=== PATIENT | female | born 1965 | race Caucasian/White ===

== ENCOUNTER → 2016-06-17 | Outpatient (CLI) | payer BC ==
[~2016-06-17] MED LIST: ALB0.5V INH; ALBU8.5H2 IH; ALPR.5T PO; BUDE6HFA IH; ESTR2TAB4 PO; FLUT9.9S NSEACH; HYDR-3812 PO; IRON150C3 PO; LVT.088T PO; MNTL10T PO; PANT20TA PO; PANT40TA3 PO
--- OUTSIDE RECORDS SUMMARY | 2016-06-17 06:50 | XMS REPORT | Continuity of Care Document ---
Author Author [facility] Organization [facility] Address Unknown Phone Unavailable Allergies Active Description Code Type Severity Reaction Onset Reported/Identified Relationship to Patient Clinical Status Yes amoxicillin [id number] Drug Allergy Unknown N/A 10/20/2013 Yes azithromycin [id number] Drug Allergy Unknown N/A 10/20/2013 Yes diphenhydramine [id number] Drug Allergy Unknown N/A 10/20/2013 Yes levofloxacin [id number] Drug Allergy Unknown N/A 10/20/2013 Yes Penicillins [id number] Drug Allergy Unknown N/A 10/20/2013 Yes Sulfa (Sulfonamide Antibiotics) [id number] Drug Allergy Unknown N/A 10/20/2013 Medications Problems Date Dx Coded Attending Type Code Diagnosis Diagnosed By 04/02/2014 JEREMY HERNANDEZ, WILLIAM Nieto Ot 530.10 04/02/2014 JEREMY HERNANDEZ, WILLIAM Nieto Ot 535.50 04/02/2014 JEREMY HERNANDEZ, WILLIAM Nieto Ot 553.3 04/02/2014 GLADYS DE ANDA DO Ot 786.09 04/02/2014 GLADYS DE ANDA DO Ot 793.11 04/16/2015 GLADYS DE ANDA DO Ot F41.9 04/16/2015 GLADYS DE ANDA DO Ot J40 04/16/2015 GLADYS DE ANDA DO Ot R05 04/16/2015 GLADYS DE ANDA DO Ot R06.00 08/06/2015 SATNAM HUNT APRN Ot J40 BRONCHITIS, NOT SPECIFIED ACUTE OR CH 08/06/2015 SATNAM HUNT DESULPHURING OPERATOR Ot R05 COUGH 08/06/2015 SATNAM HUNT APRN Ot R06.00 DYSPNEA, UNSPECIFIED 08/21/2015 SATNAM HUNT DESULPHURING OPERATOR Ot J40 BRONCHITIS, NOT SPECIFIED ACUTE OR CH 08/21/2015 SATNAM HUNT DESULPHURING OPERATOR Ot R05 COUGH 08/21/2015 MARILEE, SATNAM E DESULPHURING OPERATOR Ot R06.00 DYSPNEA, UNSPECIFIED 08/26/2015 MARILEE, SATNAM E DESULPHURING OPERATOR Ot J30.9 ALLERGIC RHINITIS, UNSPECIFIED 08/26/2015 MARILEE, SATNAM E DESULPHURING OPERATOR Ot 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, UNSPECIFIED 08/26/2015 MARILEE, SATNAM E DESULPHURING OPERATOR Ot R05 COUGH 08/26/2015 MARILEE, SATNAM E DESULPHURING OPERATOR Ot J30.9 ALLERGIC RHINITIS, UNSPECIFIED 08/26/2015 MARILEE, SATNAM E DESULPHURING OPERATOR Ot 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, UNSPECIFIED 08/26/2015 MARILEE, SATNAM E DESULPHURING OPERATOR Ot R05 COUGH 08/27/2015 MARILEE, SATNAM E DESULPHURING OPERATOR Ot J30.9 ALLERGIC RHINITIS, UNSPECIFIED 08/27/2015 MARILEE, SATNAM E DESULPHURING OPERATOR Ot 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, UNSPECIFIED 08/27/2015 MARILEE, SATNAM E DESULPHURING OPERATOR Ot R05 COUGH 08/27/2015 WILLI HUNTINE E DESULPHURING OPERATOR Ot J30.9 ALLERGIC RHINITIS, UNSPECIFIED 08/27/2015 MARILEEWILLI VÁZQUEZINE E DESULPHURING OPERATOR Ot 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, UNSPECIFIED 08/27/2015 MARILEE, SATNAM E DESULPHURING OPERATOR Ot R05 COUGH 08/28/2015 MARILEE, SATNAM E DESULPHURING OPERATOR Ot J30.9 ALLERGIC RHINITIS, UNSPECIFIED 08/28/2015 MARILEE, SATNAM E DESULPHURING OPERATOR Ot 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, UNSPECIFIED 08/28/2015 MARILEE, SATNAM E DESULPHURING OPERATOR Ot R05 COUGH 08/29/2015 WILLI HUNTINE E DESULPHURING OPERATOR Ot J30.9 ALLERGIC RHINITIS, UNSPECIFIED 08/29/2015 WILLI HUNTINE E DESULPHURING OPERATOR Ot 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, UNSPECIFIED 08/29/2015 MARILEE, SATNAM E DESULPHURING OPERATOR Ot R05 COUGH 09/06/2015 MARILEE, ASTNAM E DESULPHURING OPERATOR Ot J30.9 ALLERGIC RHINITIS, UNSPECIFIED 09/06/2015 MARILEE, SATNAM E DESULPHURING OPERATOR Ot 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, UNSPECIFIED 09/06/2015 MARILEE, SATNAM E DESULPHURING OPERATOR Ot R05 COUGH 09/11/2015 MARILEE SATNAM E DESULPHURING OPERATOR Ot J30.9 ALLERGIC RHINITIS, UNSPECIFIED 09/11/2015 MARILEE, SATNAM E DESULPHURING OPERATOR Ot 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, UNSPECIFIED 09/11/2015 SATNAM HUNT DESULPHURING OPERATOR Ot R05 COUGH 09/20/2015 SATNAM HUNT DESULPHURING OPERATOR Ot J30.9 ALLERGIC RHINITIS, UNSPECIFIED 09/20/2015 SATNAM HUNT DESULPHURING OPERATOR Ot 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, UNSPECIFIED 09/20/2015 SATNAM HUNT DESULPHURING OPERATOR Ot R05 COUGH 12/11/2015 MILLER DO, SATHYA Ot M25.471 EFFUSION, RIGHT ANKLE 12/11/2015 MILLER DO, SATHYA Ot M25.571 PAIN IN RIGHT ANKLE AND JOINTS OF RIGHT 12/31/2015 MILLER DO, SATHYA Ot M25.471 EFFUSION, RIGHT ANKLE 12/31/2015 MILLER DO, SATHYA Ot M25.571 PAIN IN RIGHT ANKLE AND JOINTS OF RIGHT 06/17/2016 SATNAM HUNT DESULPHURING OPERATOR Ot J40 BRONCHITIS, NOT SPECIFIED ACUTE OR CH 06/17/2016 SATNAM HUNT DESULPHURING OPERATOR Ot R05 COUGH 06/17/2016 SATNAM HUNT DESULPHURING OPERATOR Ot R06.00 DYSPNEA, UNSPECIFIED 06/17/2016 SATNMA HUNT DESULPHURING OPERATOR Ot J30.9 ALLERGIC RHINITIS, UNSPECIFIED 06/17/2016 SATNAM HUNT DESULPHURING OPERATOR Ot 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, UNSPECIFIED 06/17/2016 SATNAM HUNT DESULPHURING OPERATOR Ot R05 COUGH 06/17/2016 SATNAM HUNT DESULPHURING OPERATOR Ot J30.9 ALLERGIC RHINITIS, UNSPECIFIED 06/17/2016 SATNAM HUNT DESULPHURING OPERATOR Ot 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, UNSPECIFIED 06/17/2016 SATNAM HUNT DESULPHURING OPERATOR Ot R05 COUGH 06/17/2016 MILLER DO, SATHYA Ot M25.471 EFFUSION, RIGHT ANKLE 06/17/2016 MILLER DO, SATHYA Ot M25.571 PAIN IN RIGHT ANKLE AND JOINTS OF RIGHT Procedures Results Test Result Range Complete blood count (CBC) with automated white blood cell (WBC) differential - 12/09/15 16:55 Blood leukocytes automated count (number/volume) 8.9 10*3/ uL 4.3-11.0 Blood erythrocytes automated count (number/volume) 4.29 10*6 /uL 4.35-5.85 Venous blood hemoglobin measurement (mass/volume) 13.4 g/dL 11.5-16.0 Blood hematocrit (volume fraction) 39 % 35-52 Automated erythrocyte mean corpuscular volume 92 [foz_us] 80-99 Automated erythrocyte mean corpuscular hemoglobin (mass per erythrocyte) 31 pg 25-34 Automated erythrocyte mean corpuscular hemoglobin concentration measurement ( mass/volume) 34 g/dL 32-36 Automated erythrocyte distribution width ratio 12.3 % 10.0-14.5 Automated blood platelet count (count/volume) 263 10*3/uL 130-400 Automated blood platelet mean volume measurement 10.4 [foz_ us] 7.4-10.4 Automated blood neutrophils/100 leukocytes 56 % 42-75 Automated blood lymphocytes/100 leukocytes 35 % 12-44 Blood monocytes/100 leukocytes 7 % 0-12 Automated blood eosinophils/100 leukocytes 2 % 0-10 Automated blood basophils/100 leukocytes 0 % 0-10 Blood neutrophils automated count (number/volume) 5.0 10*3 1.8-7.8 Blood lymphocytes automated count (number/volume) 3.1 10*3 1.0-4.0 Blood monocytes automated count (number/volume) 0.6 10*3 0.0-1.0 Automated eosinophil count 0.2 10*3/uL 0.0-0.3 Automated blood basophil count (count/volume) 0.0 10*3/uL 0.0-0.1 Comprehensive metabolic panel - 12/09/15 16:55 Serum or plasma sodium measurement (moles/volume) 137 mmol/ L 135-145 Serum or plasma potassium measurement (moles/volume) 4.0 mmol/L 3.6-5.0 Serum or plasma chloride measurement (moles/volume) 103 mmol /L 98-107 Carbon dioxide 23 mmol/L 21-32 Serum or plasma anion gap determination (moles/volume) 11 mmol/L 5-14 Serum or plasma urea nitrogen measurement (mass/volume) 10 mg/dL 7-18 Serum or plasma creatinine measurement (mass/volume) 0.75 mg /dL 0.60-1.30 Serum or plasma urea nitrogen/creatinine mass ratio 13 NRG Serum or plasma creatinine measurement with calculation of estimated glomerular filtration rate > NRG Serum or plasma glucose measurement (mass/volume) 85 mg/dL 70-105 Serum or plasma calcium measurement (mass/volume) 9.4 mg/dL 8.5-10.1 Serum or plasma total bilirubin measurement (mass/volume) 0.6 mg/dL 0.1-1.0 Serum or plasma alkaline phosphatase measurement (enzymatic activity/volume) 68 U/L 40-136 Serum or plasma aspartate aminotransferase measurement (enzymatic activity/ volume) 20 U/L 5-34 Serum or plasma alanine aminotransferase measurement (enzymatic activity/volume ) 19 U/L 0-55 Serum or plasma protein measurement (mass/volume) 7.0 g/dL 6.4-8.2 Serum or plasma albumin measurement (mass/volume) 4.2 g/dL 3.2-4.5 Serum or plasma uric acid measurement (mass/volume) - 12/09/15 16:55 Serum or plasma uric acid measurement (mass/volume) 5.9 mg/ dL 2.6-7.2 Serum or plasma C reactive protein measurement (mass/volume) - 12/09/15 16:55 Serum or plasma C reactive protein measurement (mass/volume) 2.15 mg/dL 0.00-0.50 Erythrocyte sedimentation rate by westergren method - 12/09/15 16:55 Erythrocyte sedimentation rate by westergren method 20 mm 0-30 Encounters ACCT No. Visit Date/Time Discharge Status Pt. Type Provider Facility Loc./Unit Complaint [id number] 04/02/2014 10:09:00 2013 13:15:00 DIS Outpatient WILLIAM LUNA MD [facility] [id number] 03/30/2014 05:51:00 2013 23:59:59 CLS Outpatient WILLIAM LUNA MD [facility] PREOP [id number] 03/12/2014 14:05:00 2013 23:59:59 CLS Outpatient GLADYS DE ANDA DO [facility] RAD [id number] 01/24/2014 20:23:00 2013 05:55:00 DIS Outpatient [id number] 12/15/2013 13:16:00 2013 00:01:00 DIS Outpatient [id number] 09/13/2013 15:23:00 2013 23:59:59 CLS Outpatient [id number] 07/14/2013 16:58:00 2013 23:59:59 CLS Outpatient [id number] 06/17/2016 06:47:00 ACT Outpatient SATHYA MILLER DO [facility] RAD GENERALIZED ABD PAIN [id number] 12/09/2015 16:46:00 ACT Outpatient SATHYA MILLER DO [facility] LAB PAIN IN R ANKLE AND JOINTS OF R FOOT,EFFUSION [id number] 09/05/2015 11:26:00 ACT Outpatient SATNAM HUNT APRN [facility] LAB ALLERGIC RHINITIS,COUGH,HIVES OF UNKNOWN ORIGIN [id number] 08/23/2015 10:35:00 ACT Outpatient SATNAM HUNT APRN [facility] LAB ALLERGIC RHINITIS, COUGH, URTICARIA [id number] 08/05/2015 11:29:00 ACT Outpatient SATNAM HUNT APRN [facility] RAD COUGH,BRONCHITIS [id number] 04/24/2015 09:51:00 ACT Outpatient GLADYS DE ANDA DO [facility] RT [id number] 03/25/2015 11:40:00 ACT Outpatient GLADYS DE ANDA DO [facility] RAD
--- NOTE | 2016-06-17 14:55 | Diagnostic Imaging Report ---
PROCEDURE: US abdomen complete. TECHNIQUE: Multiple real-time grayscale images were obtained over the abdomen in various projections. INDICATION: Abdominal pain. FINDINGS: There are no previous abdominal ultrasound examinations available for comparison. The CTA chest exam performed on 03/25/2015 revealed fatty infiltration of the liver as well as multiple gallstones. On this exam, both of those findings are again evident. There are multiple gallstones within the gallbladder. The gallbladder wall is not thickened, however, and there is no pericholecystic fluid to suggest acute cholecystitis. The common bile duct is not dilated either measuring 5.2 mm. The liver measures 17 cm in length and the liver does seem more echogenic than usual. 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 There is no focal mass involving the liver and the biliary tree is not abnormally dilated. The spleen does not appear to be enlarged. The spleen measures 12 x 4.4 x 3.6 cm. The spleen is homogeneous. The kidneys are normal in size and there is no evidence for a solid renal mass or for hydronephrosis of either kidney. The visualized proximal aorta and inferior vena cava are within normal limits. The pancreas is obscured by bowel gas. There is no mass or free fluid collection noted. IMPRESSION: 1. There is no acute abnormality of the abdomen. 2. There is cholelithiasis but there is no sign of acute cholecystitis. If clinical concern regarding acute cholecystitis persists and further imaging is desired, then a nuclear medicine hepatobiliary scan will be recommended. 3. The pancreas is obscured by bowel gas. Dictated by: Dictated on workstation # [id number]
== END ==
LOC: RAD 06:47
PROVIDERS: ATTEND Internal Medicine
DX: R10.84 Generalized abdominal pain (principal)
CPT/HCPCS: 76700

== ENCOUNTER → 2016-06-18 | Outpatient (CLI) | payer BC ==
--- OUTSIDE RECORDS SUMMARY | 2016-06-18 15:48 | XMS REPORT | Continuity of Care Document ---
Author Author [facility] Organization [facility] Address Unknown Phone Unavailable Allergies Active Description Code Type Severity Reaction Onset Reported/Identified Relationship to Patient Clinical Status Yes amoxicillin [id number] Drug Allergy Unknown N/A 10/20/2013 Yes azithromycin [id number] Drug Allergy Unknown N/A 10/20/2013 Yes diphenhydramine [id number] Drug Allergy Unknown N/A 10/20/2013 Yes levofloxacin [id number] Drug Allergy Unknown N/A 10/20/2013 Yes Penicillins [id number] Drug Allergy Unknown N/A 10/20/2013 Yes Sulfa (Sulfonamide Antibiotics) [id number] Drug Allergy Unknown N/A 10/20/2013 Medications Problems [...] SPECIFIED ACUTE OR CH 08/06/2015 SATNAM HUNT PROFESSOR OF SOCIAL WORK Ot R05 COUGH 08/06/2015 SATNAM HUNT APRN Ot R06.00 DYSPNEA, UNSPECIFIED 08/21/2015 SATNAM HUNT PROFESSOR OF SOCIAL WORK Ot J40 BRONCHITIS, NOT SPECIFIED ACUTE OR CH 08/21/2015 SATNAM HUNT PROFESSOR OF SOCIAL WORK Ot R05 COUGH 08/21/2015 MARILEE, SATNAM E PROFESSOR OF SOCIAL WORK Ot R06.00 DYSPNEA, UNSPECIFIED 08/26/2015 MARILEE, SATNAM E PROFESSOR OF SOCIAL WORK Ot J30.9 ALLERGIC RHINITIS, UNSPECIFIED 08/26/2015 MARILEE, SATNAM E PROFESSOR OF SOCIAL WORK Ot 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, UNSPECIFIED 08/26/2015 MARILEE, SATNAM E PROFESSOR OF SOCIAL WORK Ot R05 COUGH 08/26/2015 MARILEE, SATNAM E PROFESSOR OF SOCIAL WORK Ot J30.9 ALLERGIC RHINITIS, UNSPECIFIED 08/26/2015 MARILEE, SATNAM E PROFESSOR OF SOCIAL WORK Ot 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, UNSPECIFIED 08/26/2015 MARILEE, SATNAM E PROFESSOR OF SOCIAL WORK Ot R05 COUGH 08/27/2015 MARILEE, SATNAM E PROFESSOR OF SOCIAL WORK Ot J30.9 ALLERGIC RHINITIS, UNSPECIFIED 08/27/2015 MARILEE, SATNAM E PROFESSOR OF SOCIAL WORK Ot 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, UNSPECIFIED 08/27/2015 MARILEE, SATNAM E PROFESSOR OF SOCIAL WORK Ot R05 COUGH 08/27/2015 WILLI HUNTINE E PROFESSOR OF SOCIAL WORK Ot J30.9 ALLERGIC RHINITIS, UNSPECIFIED 08/27/2015 MARILEEWILLI VÁZQUEZINE E PROFESSOR OF SOCIAL WORK Ot 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, UNSPECIFIED 08/27/2015 MARILEE, SATNAM E PROFESSOR OF SOCIAL WORK Ot R05 COUGH 08/28/2015 MARILEE, SATNAM E PROFESSOR OF SOCIAL WORK Ot J30.9 ALLERGIC RHINITIS, UNSPECIFIED 08/28/2015 MARILEE, SATNAM E PROFESSOR OF SOCIAL WORK Ot 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, UNSPECIFIED 08/28/2015 MARILEE, SATNAM E PROFESSOR OF SOCIAL WORK Ot R05 COUGH 08/29/2015 WILLI HUNTINE E PROFESSOR OF SOCIAL WORK Ot J30.9 ALLERGIC RHINITIS, UNSPECIFIED 08/29/2015 WILLI HUNTINE E PROFESSOR OF SOCIAL WORK Ot 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, UNSPECIFIED 08/29/2015 MARILEE, SATNAM E PROFESSOR OF SOCIAL WORK Ot R05 COUGH 09/06/2015 MARILEE, SATNAM E PROFESSOR OF SOCIAL WORK Ot J30.9 ALLERGIC RHINITIS, UNSPECIFIED 09/06/2015 MARILEE, SATNAM E PROFESSOR OF SOCIAL WORK Ot 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, UNSPECIFIED 09/06/2015 MARILEE, SATNAM E PROFESSOR OF SOCIAL WORK Ot R05 COUGH 09/11/2015 MARILEE SATNAM E PROFESSOR OF SOCIAL WORK Ot J30.9 ALLERGIC RHINITIS, UNSPECIFIED 09/11/2015 MARILEE, SATNAM E PROFESSOR OF SOCIAL WORK Ot 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, UNSPECIFIED 09/11/2015 SATNAM HUNT PROFESSOR OF SOCIAL WORK Ot R05 COUGH 09/20/2015 SATNAM HUNT PROFESSOR OF SOCIAL WORK Ot J30.9 ALLERGIC RHINITIS, UNSPECIFIED 09/20/2015 SATNAM HUNT PROFESSOR OF SOCIAL WORK Ot 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, UNSPECIFIED 09/20/2015 SATNAM HUNT PROFESSOR OF SOCIAL WORK Ot R05 COUGH 12/11/2015 MILLER DO, SATHYA Ot M25.471 EFFUSION, RIGHT ANKLE 12/11/2015 MILLER DO, SATHYA Ot M25.571 PAIN IN RIGHT ANKLE AND JOINTS OF RIGHT 12/31/2015 MILLER DO, SATHYA Ot M25.471 EFFUSION, RIGHT ANKLE 12/31/2015 MILLER DO, SATHYA Ot M25.571 PAIN IN RIGHT ANKLE AND JOINTS OF RIGHT 06/17/2016 SATNAM HUNT PROFESSOR OF SOCIAL WORK Ot J40 BRONCHITIS, NOT SPECIFIED ACUTE OR CH 06/17/2016 SATNAM HUNT PROFESSOR OF SOCIAL WORK Ot R05 COUGH 06/17/2016 SATNAM HUNT PROFESSOR OF SOCIAL WORK Ot R06.00 DYSPNEA, UNSPECIFIED 06/17/2016 SATNAM HUNT PROFESSOR OF SOCIAL WORK Ot J30.9 ALLERGIC RHINITIS, UNSPECIFIED 06/17/2016 SATNAM HUNT PROFESSOR OF SOCIAL WORK Ot 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, UNSPECIFIED 06/17/2016 SATNAM HUNT PROFESSOR OF SOCIAL WORK Ot R05 COUGH 06/17/2016 SATNAM HUNT PROFESSOR OF SOCIAL WORK Ot J30.9 ALLERGIC RHINITIS, UNSPECIFIED 06/17/2016 SATNAM HUNT PROFESSOR OF SOCIAL WORK Ot 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, UNSPECIFIED 06/17/2016 SATNAM HUNT PROFESSOR OF SOCIAL WORK Ot R05 COUGH 06/17/2016 MILLER DO, SATHYA [...] Status Pt. Type Provider Facility Loc./Unit Complaint [id number] 04/02/2014 10:09:00 2013 13:15:00 DIS Outpatient WILLIAM LUNA MD [facility] [id number] 03/30/2014 05:51:00 2013 23:59:59 CLS Outpatient WILLIAM LUNA MD [facility] PREOP [id number] 03/12/2014 14:05:00 2013 23:59:59 CLS Outpatient GLADYS DE ANDA DO [facility] RAD [id number] 01/24/2014 20:23:00 2013 05:55:00 DIS Outpatient [id number] 12/15/2013 13:16:00 2013 00:01:00 DIS Outpatient [id number] 09/13/2013 15:23:00 2013 23:59:59 CLS Outpatient [id number] 07/14/2013 16:58:00 2013 23:59:59 CLS Outpatient [id number] 06/17/2016 06:47:00 ACT Outpatient SATHYA MILLER DO [facility] RAD GENERALIZED ABD PAIN [id number] 12/09/2015 16:46:00 ACT Outpatient SATHYA MILLER DO [facility] LAB PAIN IN R ANKLE AND JOINTS OF R FOOT,EFFUSION [id number] 09/05/2015 11:26:00 ACT Outpatient SATNAM HUNT APRN [facility] LAB ALLERGIC RHINITIS,COUGH,HIVES OF UNKNOWN ORIGIN [id number] 08/23/2015 10:35:00 ACT Outpatient SATNAM HUNT APRN [facility] LAB ALLERGIC RHINITIS, COUGH, URTICARIA [id number] 08/05/2015 11:29:00 ACT Outpatient SATNAM HUNT APRN [facility] RAD COUGH,BRONCHITIS [id number] 04/24/2015 09:51:00 ACT Outpatient GLADYS DE ANDA DO [facility] RT [id number] 03/25/2015 11:40:00 ACT Outpatient GLADYS DE ANDA DO [facility] RAD
[2016-06-18 15:57] LABS: MEAN PLATELET VOLUME 9.9 FL (7.4-10.4); RED BLOOD COUNT 4.27 10^6/uL (4.35-5.85); RED CELL DISTRIBUTION WIDTH 12.2 % (10.0-14.5); WHITE BLOOD COUNT 9.1 10^3/uL (4.3-11.0)
[2016-06-18 16:17] LABS: ALANINE AMINOTRANSFERASE 15 U/L (0-55); ALBUMIN 4.1 G/DL (3.2-4.5); AMYLASE 35 U/L (25-125); ANION GAP 10 MMOL/L (5-14); ASPARTATE AMINO TRANSFERASE 15 U/L (5-34); BILIRUBIN,TOTAL 0.5 MG/DL (0.1-1.0); BLOOD UREA NITROGEN 9 MG/DL (7-18); BUN/CREATININE RATIO 12; CALCIUM 9.2 MG/DL (8.5-10.1); CARBON DIOXIDE 24 MMOL/L (21-32); CHLORIDE 104 MMOL/L (98-107); CREATININE SERUM 0.74 MG/DL (0.60-1.30); GFR ESTIMATED > 60; GLUCOSE 86 MG/DL (70-105); LIPASE 12 U/L (8-78); POTASSIUM 3.8 MMOL/L (3.6-5.0); SODIUM 138 MMOL/L (135-145); TOTAL PROTEIN 7.2 G/DL (6.4-8.2)
== END ==
LOC: LAB 15:42
PROVIDERS: ATTEND Surgery
DX: R10.11 Right upper quadrant pain (principal)
CPT/HCPCS: 36415; 80053; 82150; 83690; 85027

== ENCOUNTER 2016-06-19 06:25 | Outpatient (CLI) | payer BC ==
[~2016-06-19] VITALS: Ht 157.5 cm; Wt 88.5 kg
[~2016-06-19 06:25] MED LIST changes: -ESTR2TAB4 PO; -FLUT9.9S NSEACH; -HYDR-3812 PO; -IRON150C3 PO; -PANT40TA3 PO
--- OUTSIDE RECORDS SUMMARY | 2016-06-19 06:28 | XMS REPORT | Continuity of Care Document ---
Author Author [facility] Organization [facility] Address Unknown Phone Unavailable Allergies Active Description Code Type Severity Reaction Onset Reported/Identified Relationship to Patient Clinical Status Yes amoxicillin [id number] Drug Allergy Unknown N/A 10/20/2013 Yes azithromycin [id number] Drug Allergy Unknown N/A 10/20/2013 Yes diphenhydramine [id number] Drug Allergy Unknown N/A 10/20/2013 Yes levofloxacin [id number] Drug Allergy Unknown N/A 10/20/2013 Yes Penicillins [id number] Drug Allergy Unknown N/A 10/20/2013 Yes Sulfa (Sulfonamide Antibiotics) [id number] Drug Allergy Unknown N/A 10/20/2013 Medications Problems [...] SPECIFIED ACUTE OR CH 08/06/2015 SATNAM HUNT ORAL SURGERY TECHNICIAN Ot R05 COUGH 08/06/2015 SATNAM HUNT APRN Ot R06.00 DYSPNEA, UNSPECIFIED 08/21/2015 SATNAM HUNT ORAL SURGERY TECHNICIAN Ot J40 BRONCHITIS, NOT SPECIFIED ACUTE OR CH 08/21/2015 SATANM HUNT ORAL SURGERY TECHNICIAN Ot R05 COUGH 08/21/2015 MARILEE, SATANM E ORAL SURGERY TECHNICIAN Ot R06.00 DYSPNEA, UNSPECIFIED 08/26/2015 MARILEE, SATNAM E ORAL SURGERY TECHNICIAN Ot J30.9 ALLERGIC RHINITIS, UNSPECIFIED 08/26/2015 MARILEE, ASTNAM E ORAL SURGERY TECHNICIAN Ot 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, UNSPECIFIED 08/26/2015 MARILEE, SATNAM E ORAL SURGERY TECHNICIAN Ot R05 COUGH 08/26/2015 MARILEE, SATNAM E ORAL SURGERY TECHNICIAN Ot J30.9 ALLERGIC RHINITIS, UNSPECIFIED 08/26/2015 MARILEE, SATNAM E ORAL SURGERY TECHNICIAN Ot 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, UNSPECIFIED 08/26/2015 MARILEE, SATNAM E ORAL SURGERY TECHNICIAN Ot R05 COUGH 08/27/2015 MARILEE, SATNAM E ORAL SURGERY TECHNICIAN Ot J30.9 ALLERGIC RHINITIS, UNSPECIFIED 08/27/2015 MARILEE, SATNAM E ORAL SURGERY TECHNICIAN Ot 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, UNSPECIFIED 08/27/2015 MARILEE, SATNAM E ORAL SURGERY TECHNICIAN Ot R05 COUGH 08/27/2015 WILLI HUNTINE E ORAL SURGERY TECHNICIAN Ot J30.9 ALLERGIC RHINITIS, UNSPECIFIED 08/27/2015 MARILEEWILLI VÁZQUEZINE E ORAL SURGERY TECHNICIAN Ot 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, UNSPECIFIED 08/27/2015 MARILEE, SATNAM E ORAL SURGERY TECHNICIAN Ot R05 COUGH 08/28/2015 MARILEE, SATNAM E ORAL SURGERY TECHNICIAN Ot J30.9 ALLERGIC RHINITIS, UNSPECIFIED 08/28/2015 MARILEE, SATNAM E ORAL SURGERY TECHNICIAN Ot 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, UNSPECIFIED 08/28/2015 MARILEE, SATNAM E ORAL SURGERY TECHNICIAN Ot R05 COUGH 08/29/2015 WILLI HUNTINE E ORAL SURGERY TECHNICIAN Ot J30.9 ALLERGIC RHINITIS, UNSPECIFIED 08/29/2015 WILLI HUNTINE E ORAL SURGERY TECHNICIAN Ot 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, UNSPECIFIED 08/29/2015 MARILEE, SATNAM E ORAL SURGERY TECHNICIAN Ot R05 COUGH 09/06/2015 MARILEE, SATNAM E ORAL SURGERY TECHNICIAN Ot J30.9 ALLERGIC RHINITIS, UNSPECIFIED 09/06/2015 MARILEE, SATNAM E ORAL SURGERY TECHNICIAN Ot 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, UNSPECIFIED 09/06/2015 MARILEE, SATNAM E ORAL SURGERY TECHNICIAN Ot R05 COUGH 09/11/2015 MARILEE SATNAM E ORAL SURGERY TECHNICIAN Ot J30.9 ALLERGIC RHINITIS, UNSPECIFIED 09/11/2015 MARILEE, SATNAM E ORAL SURGERY TECHNICIAN Ot 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, UNSPECIFIED 09/11/2015 SATNAM HUNT ORAL SURGERY TECHNICIAN Ot R05 COUGH 09/20/2015 SATNAM HUNT ORAL SURGERY TECHNICIAN Ot J30.9 ALLERGIC RHINITIS, UNSPECIFIED 09/20/2015 SATNAM HUNT ORAL SURGERY TECHNICIAN Ot 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, UNSPECIFIED 09/20/2015 SATNAM HUNT ORAL SURGERY TECHNICIAN Ot R05 COUGH 12/11/2015 MILLER DO, SATHYA Ot M25.471 EFFUSION, RIGHT ANKLE 12/11/2015 MILLER DO, SATHYA Ot M25.571 PAIN IN RIGHT ANKLE AND JOINTS OF RIGHT 12/31/2015 MILLER DO, SATHYA Ot M25.471 EFFUSION, RIGHT ANKLE 12/31/2015 MILLER DO, SATHYA Ot M25.571 PAIN IN RIGHT ANKLE AND JOINTS OF RIGHT 06/17/2016 SATNAM HUNT ORAL SURGERY TECHNICIAN Ot J40 BRONCHITIS, NOT SPECIFIED ACUTE OR CH 06/17/2016 SATNAM HUNT ORAL SURGERY TECHNICIAN Ot R05 COUGH 06/17/2016 SATNAM HUNT ORAL SURGERY TECHNICIAN Ot R06.00 DYSPNEA, UNSPECIFIED 06/17/2016 SATNAM HUNT ORAL SURGERY TECHNICIAN Ot J30.9 ALLERGIC RHINITIS, UNSPECIFIED 06/17/2016 SATNAM HUNT ORAL SURGERY TECHNICIAN Ot 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, UNSPECIFIED 06/17/2016 SATNAM HUNT ORAL SURGERY TECHNICIAN Ot R05 COUGH 06/17/2016 SATNAM HUNT ORAL SURGERY TECHNICIAN Ot J30.9 ALLERGIC RHINITIS, UNSPECIFIED 06/17/2016 SATNAM HUNT ORAL SURGERY TECHNICIAN Ot 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, UNSPECIFIED 06/17/2016 SATNAM HUNT ORAL SURGERY TECHNICIAN Ot R05 COUGH 06/17/2016 MILLER DO, SATHYA [...] rate by westergren method 20 mm 0-30 Automated blood complete blood count (hemogram) panel - 06/18/16 15:53 Blood leukocytes automated count (number/volume) 9.1 10*3/ uL 4.3-11.0 Blood erythrocytes automated count (number/volume) 4.27 10*6 /uL 4.35-5.85 Venous blood hemoglobin measurement (mass/volume) 13.4 g/dL 11.5-16.0 Blood hematocrit (volume fraction) 39 % 35-52 Automated erythrocyte mean corpuscular volume 92 [foz_us] 80-99 Automated erythrocyte mean corpuscular hemoglobin (mass per erythrocyte) 31 pg 25-34 Automated erythrocyte mean corpuscular hemoglobin concentration measurement ( mass/volume) 34 g/dL 32-36 Automated erythrocyte distribution width ratio 12.2 % 10.0-14.5 Automated blood platelet count (count/volume) 269 10*3/uL 130-400 Automated blood platelet mean volume measurement 9.9 [foz_us ] 7.4-10.4 Comprehensive metabolic panel - 06/18/16 15:53 Serum or plasma sodium measurement (moles/volume) 138 mmol/ L 135-145 Serum or plasma potassium measurement (moles/volume) 3.8 mmol/L 3.6-5.0 Serum or plasma chloride measurement (moles/volume) 104 mmol /L 98-107 Carbon dioxide 24 mmol/L 21-32 Serum or plasma anion gap determination (moles/volume) 10 mmol/L 5-14 Serum or plasma urea nitrogen measurement (mass/volume) 9 mg /dL 7-18 Serum or plasma creatinine measurement (mass/volume) 0.74 mg /dL 0.60-1.30 Serum or plasma urea nitrogen/creatinine mass ratio 12 NRG Serum or plasma creatinine measurement with calculation of estimated glomerular filtration rate > NRG Serum or plasma glucose measurement (mass/volume) 86 mg/dL 70-105 Serum or plasma calcium measurement (mass/volume) 9.2 mg/dL 8.5-10.1 Serum or plasma total bilirubin measurement (mass/volume) 0.5 mg/dL 0.1-1.0 Serum or plasma alkaline phosphatase measurement (enzymatic activity/volume) 63 U/L 40-136 Serum or plasma aspartate aminotransferase measurement (enzymatic activity/ volume) 15 U/L 5-34 Serum or plasma alanine aminotransferase measurement (enzymatic activity/volume ) 15 U/L 0-55 Serum or plasma protein measurement (mass/volume) 7.2 g/dL 6.4-8.2 Serum or plasma albumin measurement (mass/volume) 4.1 g/dL 3.2-4.5 Serum or plasma amylase measurement (enzymatic activity/volume) - 06/18/16 15: 53 Serum or plasma amylase measurement (enzymatic activity/volume) 35 U/L 25-125 Lipase - 06/18/16 15:53 Lipase 12 U/L 8-78 Encounters ACCT No. Visit Date/Time Discharge Status Pt. Type Provider Facility Loc./Unit Complaint [id number] 04/02/2014 10:09:00 2013 13:15:00 DIS Outpatient WILLIAM LUNA MD Via [facility] [id number] 03/30/2014 05:51:00 2013 23:59:59 CLS Outpatient WILLIAM LUNA MD [facility] PREOP [id number] 03/12/2014 14:05:00 2013 23:59:59 CLS Outpatient GLADYS DE ANDA DO [facility] RAD [id number] 01/24/2014 20:23:00 2013 05:55:00 DIS Outpatient [id number] 12/15/2013 13:16:00 2013 00:01:00 DIS Outpatient [id number] 09/13/2013 15:23:00 2013 23:59:59 CLS Outpatient [id number] 07/14/2013 16:58:00 2013 23:59:59 CLS Outpatient [id number] 06/19/2016 06:25:00 ACT Outpatient WILLIAM LUNA MD [facility] PREOP [place] [id number] 06/18/2016 15:42:00 ACT Outpatient WILLIAM LUNA MD [facility] LAB RUQ PAIN [id number] 06/17/2016 06:47:00 ACT Outpatient SATHYA MILLER DO [facility] RAD GENERALIZED ABD PAIN [id number] 12/09/2015 16:46:00 ACT Outpatient SATHYA MILLER DO [facility] LAB PAIN IN R ANKLE AND JOINTS OF R FOOT,EFFUSION [id number] 09/05/2015 11:26:00 ACT Outpatient SATNAM HUNT APRN [facility] LAB ALLERGIC RHINITIS,COUGH,HIVES OF UNKNOWN ORIGIN [id number] 08/23/2015 10:35:00 ACT Outpatient SATNAM HUNT APRN [facility] LAB ALLERGIC RHINITIS, COUGH, URTICARIA [id number] 08/05/2015 11:29:00 ACT Outpatient SATNAM HUNT APRN [facility] RAD COUGH,BRONCHITIS [id number] 04/24/2015 09:51:00 ACT Outpatient GLADYS DE ANDA DO [facility] RT [id number] 03/25/2015 11:40:00 ACT Outpatient GLADYS DE ANDA DO [facility] RAD
[2016-06-19] MEDS ORDERED: PANT40TA3 PO (12:11)
[2016-06-19] MEDS ORDERED: FLUT9.9S NSEACH (12:11)
[2016-06-19] MEDS ORDERED: ESTR2TAB4 PO (12:11)
[2016-06-19] MEDS ORDERED: IRON150C3 PO (12:11)
[2016-06-22] MEDS ORDERED: HYDR-3812 PO (08:42)
== END 2016-06-19 12:17 ==
LOC: PREOP 06:25
PROVIDERS: ATTEND Surgery
DX: Z01.818 Encounter for other preprocedural examination (principal); J35.3 Hypertrophy of tonsils with hypertrophy of adenoids

== ENCOUNTER 2016-06-22 06:08 | Day surgery (SDC) | payer BC ==
[~2016-06-22] VITALS: Ht 157.5 cm; Wt 88.5 kg
[~2016-06-22 06:08] MED LIST changes: +ESTR2TAB4 PO; +FLUT9.9S NSEACH; +IRON150C3 PO; +PANT40TA3 PO
--- OUTSIDE RECORDS SUMMARY | 2016-06-22 06:11 | XMS REPORT | Continuity of Care Document ---
Author Author [facility] Organization [facility] Address Unknown Phone Unavailable Allergies Active Description Code Type Severity Reaction Onset Reported/Identified Relationship to Patient Clinical Status Yes amoxicillin [id number] Drug Allergy Unknown N/A 10/20/2013 Yes azithromycin [id number] Drug Allergy Unknown N/A 10/20/2013 Yes diphenhydramine [id number] Drug Allergy Unknown N/A 10/20/2013 Yes levofloxacin [id number] Drug Allergy Unknown N/A 10/20/2013 Yes Penicillins [id number] Drug Allergy Unknown N/A 10/20/2013 Yes Sulfa (Sulfonamide Antibiotics) [id number] Drug Allergy Unknown N/A 10/20/2013 Medications Problems [...] SPECIFIED ACUTE OR CH 08/06/2015 SATNAM HUNT RING FACER Ot R05 COUGH 08/06/2015 SATNAM HUNT APRN Ot R06.00 DYSPNEA, UNSPECIFIED 08/21/2015 SATNAM HUNT RING FACER Ot J40 BRONCHITIS, NOT SPECIFIED ACUTE OR CH 08/21/2015 SATNAM HUNT RING FACER Ot R05 COUGH 08/21/2015 MARILEE, SATNAM E RING FACER Ot R06.00 DYSPNEA, UNSPECIFIED 08/26/2015 MARILEE, SATNAM E RING FACER Ot J30.9 ALLERGIC RHINITIS, UNSPECIFIED 08/26/2015 MARILEE, SATNAM E RING FACER Ot 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, UNSPECIFIED 08/26/2015 MARILEE, SATNAM E RING FACER Ot R05 COUGH 08/26/2015 MARILEE, SATNAM E RING FACER Ot J30.9 ALLERGIC RHINITIS, UNSPECIFIED 08/26/2015 MARILEE, SATNAM E RING FACER Ot 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, UNSPECIFIED 08/26/2015 MARILEE, SATNAM E RING FACER Ot R05 COUGH 08/27/2015 MARILEE, SATNAM E RING FACER Ot J30.9 ALLERGIC RHINITIS, UNSPECIFIED 08/27/2015 MARILEE, SATNAM E RING FACER Ot 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, UNSPECIFIED 08/27/2015 MARILEE, SATNAM E RING FACER Ot R05 COUGH 08/27/2015 WILLI HUNTINE E RING FACER Ot J30.9 ALLERGIC RHINITIS, UNSPECIFIED 08/27/2015 MARILEEWILLI VÁZQUEZINE E RING FACER Ot 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, UNSPECIFIED 08/27/2015 MARILEE, SATNAM E RING FACER Ot R05 COUGH 08/28/2015 MARILEE, SATNAM E RING FACER Ot J30.9 ALLERGIC RHINITIS, UNSPECIFIED 08/28/2015 MARILEE, SATNAM E RING FACER Ot 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, UNSPECIFIED 08/28/2015 MARILEE, SATNAM E RING FACER Ot R05 COUGH 08/29/2015 WILLI HUNTINE E RING FACER Ot J30.9 ALLERGIC RHINITIS, UNSPECIFIED 08/29/2015 WILLI HUNTINE E RING FACER Ot 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, UNSPECIFIED 08/29/2015 MARILEE, SATNAM E RING FACER Ot R05 COUGH 09/06/2015 MARILEE, SATNAM E RING FACER Ot J30.9 ALLERGIC RHINITIS, UNSPECIFIED 09/06/2015 MARILEE, SATNAM E RING FACER Ot 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, UNSPECIFIED 09/06/2015 MARILEE, SATNAM E RING FACER Ot R05 COUGH 09/11/2015 MARILEE SATNAM E RING FACER Ot J30.9 ALLERGIC RHINITIS, UNSPECIFIED 09/11/2015 MARILEE, SATNAM E RING FACER Ot 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, UNSPECIFIED 09/11/2015 SATNAM HUNT RING FACER Ot R05 COUGH 09/20/2015 SATNAM HUNT RING FACER Ot J30.9 ALLERGIC RHINITIS, UNSPECIFIED 09/20/2015 SATNAM HUNT RING FACER Ot 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, UNSPECIFIED 09/20/2015 SATNAM HUNT RING FACER Ot R05 COUGH 12/11/2015 MILLER DO, SATHYA Ot M25.471 EFFUSION, RIGHT ANKLE 12/11/2015 MILLER DO, SATHYA Ot M25.571 PAIN IN RIGHT ANKLE AND JOINTS OF RIGHT 12/31/2015 MILLER DO, SATHYA Ot M25.471 EFFUSION, RIGHT ANKLE 12/31/2015 MILLER DO, SATHYA Ot M25.571 PAIN IN RIGHT ANKLE AND JOINTS OF RIGHT 06/17/2016 SATNAM HUNT RING FACER Ot J40 BRONCHITIS, NOT SPECIFIED ACUTE OR CH 06/17/2016 SATNAM HUNT RING FACER Ot R05 COUGH 06/17/2016 SATNAM HUNT RING FACER Ot R06.00 DYSPNEA, UNSPECIFIED 06/17/2016 SATNAM HUNT RING FACER Ot J30.9 ALLERGIC RHINITIS, UNSPECIFIED 06/17/2016 SATNAM HUNT RING FACER Ot 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 Type Provider Facility Loc./Unit Complaint [id number] 06/19/2016 06:25:00 2016 12:17:00 DIS Outpatient WILLIAM LUNA MD [facility] PREOP [place] [id number] 04/02/2014 10:09:00 2013 13:15:00 [id number] 03/30/2014 05:51:00 2013 23:59:59 CLS Outpatient WILLIAM LUNA MD [facility] PREOP [id number] 03/12/2014 14:05:00 2013 23:59:59 CLS Outpatient GLADYS DE ANDA DO [facility] RAD [id number] 01/24/2014 20:23:00 2013 05:55:00 DIS Outpatient [id number] 12/15/2013 13:16:00 2013 00:01:00 DIS Outpatient [id number] 09/13/2013 15:23:00 2013 23:59:59 CLS Outpatient [id number] 07/14/2013 16:58:00 2013 23:59:59 CLS Outpatient [id number] 06/22/2016 06:08:00 ACT Outpatient WILLIAM LUNA MD [facility] SDC [place] [id number] 06/18/2016 15:42:00 ACT Outpatient WILLIAM LUNA MD [facility] LAB RUQ PAIN [id number] 06/17/2016 06:47:00 ACT Outpatient SATHYA MILLER DO [facility] RAD GENERALIZED ABD PAIN [id number] 12/09/2015 16:46:00 ACT Outpatient SATHYA MILLER DO [facility] LAB PAIN IN R ANKLE AND JOINTS OF R FOOT,EFFUSION [id number] 09/05/2015 11:26:00 ACT Outpatient SATNAM HUNT APRN [facility] LAB ALLERGIC RHINITIS,COUGH,HIVES OF UNKNOWN ORIGIN [id number] 08/23/2015 10:35:00 ACT Outpatient SATNAM HUNT APRN [facility] LAB ALLERGIC RHINITIS, COUGH, URTICARIA [id number] 08/05/2015 11:29:00 ACT Outpatient SATNAM HUNT APRN [facility] RAD COUGH,BRONCHITIS [id number] 04/24/2015 09:51:00 ACT Outpatient GLADYS DE ANDA DO [facility] RT [id number] 03/25/2015 11:40:00 ACT Outpatient GLADYS DE ANDA DO Via [facility]
--- OUTSIDE RECORDS SUMMARY | 2016-06-22 06:12 | XMS REPORT | Continuity of Care Document ---
Author Author [facility] Organization [facility] Address Unknown Phone Unavailable Allergies Active Description Code Type Severity Reaction Onset Reported/Identified Relationship to Patient Clinical Status Yes amoxicillin [id number] Drug Allergy Unknown N/A 10/20/2013 Yes azithromycin [id number] Drug Allergy Unknown N/A 10/20/2013 Yes diphenhydramine [id number] Drug Allergy Unknown N/A 10/20/2013 Yes levofloxacin [id number] Drug Allergy Unknown N/A 10/20/2013 Yes Penicillins [id number] Drug Allergy Unknown N/A 10/20/2013 Yes Sulfa (Sulfonamide Antibiotics) [id number] Drug Allergy Unknown N/A 10/20/2013 Medications Problems [...] SPECIFIED ACUTE OR CH 08/06/2015 SATNAM HUNT SOLE STAINER Ot R05 COUGH 08/06/2015 SATNAM HUNT APRN Ot R06.00 DYSPNEA, UNSPECIFIED 08/21/2015 SATNAM HUNT SOLE STAINER Ot J40 BRONCHITIS, NOT SPECIFIED ACUTE OR CH 08/21/2015 SATNAM HUNT SOLE STAINER Ot R05 COUGH 08/21/2015 MARILEE, SATNAM E SOLE STAINER Ot R06.00 DYSPNEA, UNSPECIFIED 08/26/2015 MARILEE, SATNAM E SOLE STAINER Ot J30.9 ALLERGIC RHINITIS, UNSPECIFIED 08/26/2015 MARILEE, SATNAM E SOLE STAINER Ot 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, UNSPECIFIED 08/26/2015 MARILEE, SATNAM E SOLE STAINER Ot R05 COUGH 08/26/2015 MARILEE, SATNAM E SOLE STAINER Ot J30.9 ALLERGIC RHINITIS, UNSPECIFIED 08/26/2015 MARILEE, SATNAM E SOLE STAINER Ot 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, UNSPECIFIED 08/26/2015 MARILEE, SATNAM E SOLE STAINER Ot R05 COUGH 08/27/2015 MARILEE, SATNAM E SOLE STAINER Ot J30.9 ALLERGIC RHINITIS, UNSPECIFIED 08/27/2015 MARILEE, SATNAM E SOLE STAINER Ot 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, UNSPECIFIED 08/27/2015 MARILEE, SATNAM E SOLE STAINER Ot R05 COUGH 08/27/2015 WILLI HUNTINE E SOLE STAINER Ot J30.9 ALLERGIC RHINITIS, UNSPECIFIED 08/27/2015 MARILEEWILLI VÁZQUEZINE E SOLE STAINER Ot 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, UNSPECIFIED 08/27/2015 MARILEE, SATNAM E SOLE STAINER Ot R05 COUGH 08/28/2015 MARILEE, SATNAM E SOLE STAINER Ot J30.9 ALLERGIC RHINITIS, UNSPECIFIED 08/28/2015 MARILEE, SATNAM E SOLE STAINER Ot 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, UNSPECIFIED 08/28/2015 MARILEE, SATNAM E SOLE STAINER Ot R05 COUGH 08/29/2015 WILLI HUNTINE E SOLE STAINER Ot J30.9 ALLERGIC RHINITIS, UNSPECIFIED 08/29/2015 WILLI HUNTINE E SOLE STAINER Ot 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, UNSPECIFIED 08/29/2015 MARILEE, SATNAM E SOLE STAINER Ot R05 COUGH 09/06/2015 MARILEE, SATNAM E SOLE STAINER Ot J30.9 ALLERGIC RHINITIS, UNSPECIFIED 09/06/2015 MARILEE, SATNAM E SOLE STAINER Ot 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, UNSPECIFIED 09/06/2015 MARILEE, SATNAM E SOLE STAINER Ot R05 COUGH 09/11/2015 MARILEE SATNAM E SOLE STAINER Ot J30.9 ALLERGIC RHINITIS, UNSPECIFIED 09/11/2015 MARILEE, SATNAM E SOLE STAINER Ot 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, UNSPECIFIED 09/11/2015 SATNAM HUNT SOLE STAINER Ot R05 COUGH 09/20/2015 SATNAM HUNT SOLE STAINER Ot J30.9 ALLERGIC RHINITIS, UNSPECIFIED 09/20/2015 SATNAM HUNT SOLE STAINER Ot 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, UNSPECIFIED 09/20/2015 SATNAM HUNT SOLE STAINER Ot R05 COUGH 12/11/2015 MILLER DO, SATHYA Ot M25.471 EFFUSION, RIGHT ANKLE 12/11/2015 MILLER DO, SATHYA Ot M25.571 PAIN IN RIGHT ANKLE AND JOINTS OF RIGHT 12/31/2015 MILLER DO, SATHYA Ot M25.471 EFFUSION, RIGHT ANKLE 12/31/2015 MILLER DO, SATHYA Ot M25.571 PAIN IN RIGHT ANKLE AND JOINTS OF RIGHT 06/17/2016 SATNAM HUNT SOLE STAINER Ot J40 BRONCHITIS, NOT SPECIFIED ACUTE OR CH 06/17/2016 SATNAM HUNT SOLE STAINER Ot R05 COUGH 06/17/2016 SATNAM HUNT SOLE STAINER Ot R06.00 DYSPNEA, UNSPECIFIED 06/17/2016 SATNAM HUNT SOLE STAINER Ot J30.9 ALLERGIC RHINITIS, UNSPECIFIED 06/17/2016 SATNAM HUNT SOLE STAINER Ot 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, UNSPECIFIED 06/17/2016 SATNAM HUNT SOLE STAINER Ot R05 COUGH 06/17/2016 SATNAM HUNT SOLE STAINER Ot J30.9 ALLERGIC RHINITIS, UNSPECIFIED 06/17/2016 SATNAM HUNT SOLE STAINER Ot 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, UNSPECIFIED 06/17/2016 SATNAM HUNT SOLE STAINER Ot R05 COUGH 06/17/2016 MILLER DO, SATHYA [...] Status Pt. Type Provider Facility Loc./Unit Complaint [id number] 06/19/2016 06:25:00 2016 12:17:00 DIS Outpatient WILLIAM LUNA MD [facility] PREOP [place] [id number] 04/02/2014 10:09:00 2013 13:15:00 [id number] 03/30/2014 05:51:00 2013 23:59:59 CLS Outpatient WILLIAM LUNA MD [facility] PREOP [id number] 03/12/2014 14:05:00 2013 23:59:59 CLS Outpatient GLADYS DE ANDA DO [facility] RAD [id number] 01/24/2014 20:23:00 2013 05:55:00 DIS Outpatient [id number] 12/15/2013 13:16:00 2013 00:01:00 DIS Outpatient [id number] 09/13/2013 15:23:00 2013 23:59:59 CLS Outpatient [id number] 07/14/2013 16:58:00 2013 23:59:59 CLS Outpatient [id number] 06/22/2016 06:08:00 ACT Outpatient WILLIAM LUNA MD [facility] SDC [place] [id number] 06/18/2016 15:42:00 ACT Outpatient WILLIAM LUNA MD [facility] LAB RUQ PAIN [id number] 06/17/2016 06:47:00 ACT Outpatient SATHYA MILLER DO [facility] RAD GENERALIZED ABD PAIN [id number] 12/09/2015 16:46:00 ACT Outpatient SATHYA MILLER DO [facility] LAB PAIN IN R ANKLE AND JOINTS OF R FOOT,EFFUSION [id number] 09/05/2015 11:26:00 ACT Outpatient SATNAM HUNT APRN [facility] LAB ALLERGIC RHINITIS,COUGH,HIVES OF UNKNOWN ORIGIN [id number] 08/23/2015 10:35:00 ACT Outpatient SATNAM HUNT APRN [facility] LAB ALLERGIC RHINITIS, COUGH, URTICARIA [id number] 08/05/2015 11:29:00 ACT Outpatient SATNAM HUNT APRN [facility] RAD COUGH,BRONCHITIS [id number] 04/24/2015 09:51:00 ACT Outpatient GLADYS DE ANDA DO [facility] RT [id number] 03/25/2015 11:40:00 ACT Outpatient GLADYS DE ANDA DO Via [facility]
[2016-06-22] MEDS ORDERED: ceFAZolin 2 GM/50 ML NS 50 ML IV ONE (06:14)
[2016-06-22] MEDS ORDERED: metroNIDAZOLE 500MG/100ML IVPB 100 ML ONE (06:14)
[2016-06-22] MEDS ORDERED: ONDANSETRON 4 MG/2 ML (SDV) Z0FRAN ONE ×2 (06:28→07:54)
[2016-06-22] MEDS ORDERED: SCOPOLAMINE 1.5 MG (TRANSDERM-SCOP) PATCH ONE (06:28)
[2016-06-22] MEDS ORDERED: FAMOTIDINE 20MG/2ML IV (PEPCID) ONE (06:28)
[2016-06-22 06:30] VITALS: BP 140/78
[2016-06-22] MEDS: LACTATED RINGERS 1,000 ML IV PRN ×2 (06:36→08:15)
[2016-06-22] MEDS ORDERED: FAMOTIDINE 20MG/2ML IV (PEPCID) IV ONE (06:45)
[2016-06-22] MEDS ORDERED: ONDANSETRON 4 MG/2 ML (SDV) Z0FRAN IV ONE (06:45)
[2016-06-22] MEDS ORDERED: SCOPOLAMINE 1.5 MG (TRANSDERM-SCOP) PATCH TOP ONE (06:45)
[2016-06-22] MEDS ORDERED: CATHETER FLUSH 10 ML SYR IV PRN (07:00)
[2016-06-22] MEDS ORDERED: proPOfol 200 MG/20 ML (DIPRIVAN) VIAL IV ONE (07:00)
[2016-06-22] MEDS ORDERED: metroNIDAZOLE 500 MG/100 ML IVPB (PRE-MIX) IV ONE (07:00)
[2016-06-22] MEDS ORDERED: fentaNYL INJECTION 100 MCG/2 ML AMP ONE ×2 (07:01→08:42)
[2016-06-22] MEDS ORDERED: MIDAZOLAM 2 MG/2 ML (VERSED) VIAL ONE (07:01)
--- NOTE | 2016-06-22 07:09 | Progress Note-Pre Operative ---
Pre-Operative Progress Note H&P Reviewed The H&P was reviewed, patient examined and no changes noted. Date H&P Reviewed: Jun 22, 2016 Time H&P Reviewed: 07:09 Pre-Operative Diagnosis: Gallstones WILLIAM LUNA MD Jun 22, 2016 7:09 am
[2016-06-22] MEDS ORDERED: BUP/EPI 0.25% 1:200,000 (MARCAINE) 30 ML VIAL ONE (07:13)
[2016-06-22] MEDS ORDERED: SEVOFLURANE (ULTANE) 15 ML INHAL SOLN ONE ×4 (07:54→08:31)
[2016-06-22] MEDS ORDERED: LIDOCAINE PF 2% 10 ML (XYLOCAINE) AMP ONE (07:54)
[2016-06-22] MEDS ORDERED: LACTATED RINGERS 1,000 ML IV ONE ×2 (07:54)
[2016-06-22] MEDS ORDERED: ROCURONIUM 50 MG/5 ML (ZEMURON) VIAL IV ONE (07:54)
[2016-06-22] MEDS ORDERED: DEXAMETHASONE PF 10 MG/ML (DECADRON) VIAL ONE (07:55)
--- NOTE | 2016-06-22 08:41 | Progress Note-Post Operative ---
Post-Operative Progess Note Pre-Operative Diagnosis Gallstones Post-Operative Diagnosis same Post-Op Procedure Note Date of Procedure: Jun 22, 2016 Name of Procedure: robotic-assisted cholecystectomy Anesthesia Type Gen. Estimated blood loss (mL): minimal Specimen(s) collected gallbladder WILLIAM LUNA MD Jun 22, 2016 8:41 am
[2016-06-22] MEDS ORDERED: HYDR-3812 PO (08:42)
--- NOTE | 2016-06-22 08:43 | Discharge Inst-Simple/Standard ---
Discharge Inst-Standard Discharge Medications New, Converted or Re-Newed RX: RX on Chart Patient Instructions/Follow Up Plan of Care/Instructions/FU: dressings off in 48 hours. Incentive spirometry. Follow-up in 3 weeks Activity as Tolerated: Yes Discharge Diet: No Restrictions WILLIAM LUNA MD Jun 22, 2016 8:43 am
[2016-06-22] MEDS ORDERED: ONDANSETRON 4 MG/2 ML (SDV) Z0FRAN IVP PRN (09:00)
[2016-06-22] MEDS: fentaNYL INJECTION 100 MCG/2 ML AMP IVP PRN ×3 (09:19→09:32)
[2016-06-22] MEDS ORDERED: MEPERIDINE (DEMEROL) INJ 50 MG/ML ONE (09:32)
[2016-06-22] MEDS: MEPERIDINE (DEMEROL) INJ 50 MG/ML IVP PRN ×2 (09:35→09:41)
[2016-06-22] MEDS ORDERED: HYDROcodone/APAP 5 MG/325 MG (LORTAB) TAB ONE (09:59)
[2016-06-22 10:00] VITALS: BP 162/95
[2016-06-22] MEDS ORDERED: HYDROcodone/APAP 5 MG/325 MG (LORTAB) TAB PO PRN (10:15)
[2016-06-22 10:30] VITALS: BP 139/77
[2016-06-22 11:00] VITALS: BP 143/86
--- NOTE | 2016-06-22 11:13 | OPERATIVE REPORT ---
PROCEDURE PHYSICIAN: WILLIAM LUNA DATE OF PROCEDURE: 06/22/2016 PREOPERATIVE DIAGNOSIS: Cholelithiasis. POSTOPERATIVE DIAGNOSIS: Cholelithiasis. OPERATION: Robotic assisted cholecystectomy. SURGEON: Dr. Luna. ANESTHESIA: General anesthesia. BLOOD LOSS: Minimal. FLUIDS: 1500 mL of crystalloids. TYPE OF WOUND: Type II (clean contaminate wound). INDICATION FOR THE PROCEDURE: This lady presented with symptomatic gallstones. She was offered cholecystectomy using minimally invasive technique with robotic assistance. Informed consent was obtained after reviewing the operative details and complications of wound infection and bile leak. DESCRIPTION OF PROCEDURE: She was placed supine on the operating table and general anesthesia induced using an endotracheal tube. 2 grams of Ancef and 500 mg of Flagyl were administered intravenously as prophylaxis against wound infection. Sequential compression devices were placed around her legs, to minimize the risk of venous thrombosis. Abbdomen was prepared and draped in the usual sterile manner. A supraumbilical incision was made and the pneumoperitoneum established using a Veress needle. Intra-abdominal pressure was maintained at 15 mmHg. A 12 mm trocar was placed and anatomy visualized using the 3 dimensional, high definition laparoscope associated with da Porfirio system. Omentum was adherent to the body of the gallbladder, possibly due to chronic cholecystitis. Under direct view, I placed an 8 mm cannula over each side of the abdomen, followed by a 5 mm trocar over the left upper quadrant, to facilitate retraction of the fundus of the gallbladder. The patient was turned into reverse Trendelenburg position, with the right side tilted up. Robotic system was then docked in place. Omentum was taken down using hook cautery and the fundus retracted cephalad. Infundibulum was grasped with Cadiere forceps and thickened tissue around the neck of the gallbladder excised using hook cautery, delineating the cystic duct, which was rather slender. Therefore, I elected not to perform cholangiogram. The cystic duct was then controlled between locking clips. The cystic artery was also divided between clips. Cholecystectomy was then completed using hook cautery. Intra-abdominal pressure was reduced to 11 mmHg looking for bleeding from the liver. One area was encountered and controlled easily using cautery. The subhepatic space was irrigated with saline and the gallbladder placed in an Endo Catch bag, being removed via the supraumbilical trocar site. The fascia over this incision was then closed using number 1 Vicryl using the Endo Close device. Skin incisions were closed using 4-0 Vicryl, in a subcuticular fashion. 0.25% Marcaine with epinephrine was infiltrated along the incisions, both preemptively and at the conclusion of the operation. She tolerated the procedure well, was extubated in the operating room and taken to the recovery room in a stable condition. [place], sponges, and instruments were correct at the end of the operation. Job ID: [id number] Dictated Date: 06/22/2016 08:41:03 [employer] Lawyer Date: 06/22/2016 11:08:34 / bibi RAMOS
== END 2016-06-22 11:54 | disposition home or self-care (01) ==
LOC: SDC 06:08
PROVIDERS: ATTEND Surgery
DX: K80.20 Calculus of gallbladder without cholecystitis without obstruction (principal); Z11.2 Encounter for screening for other bacterial diseases
CPT/HCPCS: 87081; 88304; 94664

== ENCOUNTER 2017-06-28 16:11 | Observation (INO) | payer BC ==
[~2017-06-28] VITALS: Ht 157.5 cm; Wt 88.5 kg
[~2017-06-28 16:11] MED LIST changes: +ACHD5005 PO
[2017-06-28 16:25] VITALS: BP 152/71
[2017-06-28] MEDS ORDERED: ACETAMINOPHEN 500 MG TAB (TYLENOL) PO PRN (16:30)
[2017-06-28] MEDS ORDERED: MILK OF MAGNESIA 400 MG/5 ML 30 ML UDC PO PRN (16:30)
[2017-06-28] MEDS ORDERED: SCOPOLAMINE 1.5 MG (TRANSDERM-SCOP) PATCH TOP SCH (16:30)
[2017-06-28] MEDS ORDERED: PROMETHAZINE INJ 25 MG/ML (PHENERGAN) AMP IVP PRN (16:30)
[2017-06-28] MEDS ORDERED: ONDANSETRON 4 MG/2 ML (SDV) Z0FRAN IV PRN (16:30)
[2017-06-28] MEDS ORDERED: ANTACID SUSP 30 ML UDC (MYLANTA) PO PRN (16:30)
[2017-06-28] MEDS ORDERED: MELATONIN 3 MG TABLET PO PRN (16:30)
[2017-06-28] MEDS ORDERED: RT-ALBUINH IH (16:58)
[2017-06-28] MEDS ORDERED: ESTR2TAB PO (16:58)
[2017-06-28] MEDS ORDERED: NFIPRATRNS NSEACH (16:58)
[2017-06-28] MEDS ORDERED: ALBU2.5V4 IH (16:58)
[2017-06-28] MEDS ORDERED: MONT10TA24 PO (16:58)
[2017-06-28] MEDS ORDERED: CITA20TA7 PO (16:58)
[2017-06-28] MEDS ORDERED: LEVO88TA54 PO (16:58)
[2017-06-28] MEDS: NS IV 1000 ML 1,000 ML IV SCH (17:17)
[2017-06-28 17:25] LABS: BASOPHILS % (AUTO) 0 % (0-10); EOSINOPHILS % (AUTO) 0 % (0-10); HEMATOCRIT 40 % (35-52); HEMOGLOBIN 13.7 G/DL (11.5-16.0); LYMPHOCYTES # (AUTO) 1.6 X 10^3 (1.0-4.0); LYMPHOCYTES % (AUTO) 16 % (12-44); MEAN CORPUSCULAR HEMOGLOBIN 31 PG (25-34); MEAN CORPUSCULAR HGB CONC 34 G/DL (32-36); MEAN CORPUSCULAR VOLUME 91 FL (80-99); MEAN PLATELET VOLUME 10.2 FL (7.4-10.4); MONOCYTES # (AUTO) 0.3 X 10^3 (0.0-1.0); MONOCYTES % (AUTO) 3 % (0-12); NEUTROPHILS # (AUTO) 7.9 X 10^3 (1.8-7.8); NEUTROPHILS % (AUTO) 80 % (42-75); PLATELET COUNT 266 10^3/uL (130-400); RED BLOOD COUNT 4.38 10^6/uL (4.35-5.85); RED CELL DISTRIBUTION WIDTH 12.3 % (10.0-14.5); WHITE BLOOD COUNT 9.8 10^3/uL (4.3-11.0)
[2017-06-28] MEDS ORDERED: BUDE10.2 IH (17:37)
[2017-06-28 17:45] LABS: BUN/CREATININE RATIO 17; CALCIUM 9.8 MG/DL (8.5-10.1); CARBON DIOXIDE 23 MMOL/L (21-32); CHLORIDE 102 MMOL/L (98-107); CREATININE SERUM 0.78 MG/DL (0.60-1.30); GFR ESTIMATED > 60; GLUCOSE 111 MG/DL (70-105); POTASSIUM 4.2 MMOL/L (3.6-5.0); SODIUM 136 MMOL/L (135-145)
[2017-06-28 20:59] VITALS: BP 124/59
[2017-06-28] MEDS ORDERED: ACETAMINOPHEN 325 MG TABLET/CAPLET (TYLENOL) PO PRN (21:15)
[2017-06-29] VITALS: BP 154/72
[2017-06-29] MEDS: NS IV 1000 ML 1,000 ML IV SCH ×2 (03:33→12:50)
[2017-06-29 04:00] VITALS: BP 117/56
[2017-06-29 06:43] LABS: BASOPHILS % (AUTO) 0 % (0-10); EOSINOPHILS # (AUTO) 0.2 10^3/uL (0.0-0.3); EOSINOPHILS % (AUTO) 2 % (0-10); HEMATOCRIT 37 % (35-52); HEMOGLOBIN 12.5 G/DL (11.5-16.0); LYMPHOCYTES # (AUTO) 3.3 X 10^3 (1.0-4.0); LYMPHOCYTES % (AUTO) 38 % (12-44); MEAN CORPUSCULAR HEMOGLOBIN 32 PG (25-34); MEAN CORPUSCULAR HGB CONC 34 G/DL (32-36); MEAN CORPUSCULAR VOLUME 93 FL (80-99); MEAN PLATELET VOLUME 10.6 FL (7.4-10.4); MONOCYTES # (AUTO) 0.5 X 10^3 (0.0-1.0); MONOCYTES % (AUTO) 6 % (0-12); NEUTROPHILS # (AUTO) 4.8 X 10^3 (1.8-7.8); NEUTROPHILS % (AUTO) 54 % (42-75); PLATELET COUNT 253 10^3/uL (130-400); RED BLOOD COUNT 3.93 10^6/uL (4.35-5.85); RED CELL DISTRIBUTION WIDTH 12.5 % (10.0-14.5); WHITE BLOOD COUNT 8.8 10^3/uL (4.3-11.0)
[2017-06-29 07:22] LABS: BUN/CREATININE RATIO 14; CALCIUM 8.8 MG/DL (8.5-10.1); CARBON DIOXIDE 23 MMOL/L (21-32); CHLORIDE 105 MMOL/L (98-107); GFR ESTIMATED > 60; GLUCOSE 88 MG/DL (70-105); POTASSIUM 3.8 MMOL/L (3.6-5.0); SODIUM 139 MMOL/L (135-145)
[2017-06-29 08:00] VITALS: BP 116/60
[2017-06-29] MEDS ORDERED: SCOP1PAT11 TOP (09:18)
[2017-06-29] MEDS ORDERED: ONDA4TAB8 SL (09:18)
--- NOTE | 2017-06-29 09:20 | Short Stay Summary-Hospitalist ---
History of Present Illness HPI/Chief Complaint Pt is a 51yoCF with a PMH of hypothyroidism who presented as a direct admission with CC of vertigo and intractable nausea/vomiting that started yesterday. She started having severe dizziness and vertigo at home and was unable to stand and walk due to the dizziness. She continued to worsen and started to have vomiting. She vomited twice and decided to go see her PCP for evaluation. She felt very weak in her PCP's office and continued to vomit so decision was made to admit for obs for intractable nausea and vomiting. She was started on scopolamine patch and responded well. By the time I saw her this morning she states she is feeling much better and has not vomited again. She was able to walk to the bathroom without difficulty and was interested in ordering breakfast. Source: patient Exam Limitations: no limitations Date Seen 06/29/17 Time Seen by Provider: 08:20 Attending Physician Beatrice Mendez MD PCP Katarina Bullard DO Referring Physician Date of Admission Jun 28, 2017 at 4:14 pm Home Medications & Allergies Home Medications Reviewed patient Home Medication Reconciliation performed by pharmacy medication reconciliations lab technician and/or nursing. Patients Allergies have been reviewed. Allergies Allergies Coded Allergies Amoxicillin (Unverified Allergy, Unknown, 10/20/13) Penicillins (Unverified Allergy, Unknown, 10/20/13) Sulfa (Sulfonamide Antibiotics) (Unverified Allergy, Unknown, 10/20/13) azithromycin (Unverified Allergy, Unknown, 10/20/13) diphenhydramine (Unverified Allergy, Unknown, 10/20/13) levofloxacin (Unverified Allergy, Unknown, 10/20/13) Past Bfbhkmf-Ikosgi-Udlwnx Hx Past Med/Social Hx: Reviewed Nursing Past Med/Soc Hx Patient Social History Marrital Status: Employed/Student: employed Alcohol Use: Occasionally Uses Recreational Drug Use: No Smoking Status: Former Smoker Former Smoker, Quit: Jun 23, 1991 Physical Abuse Screen: No Sexual Abuse: No Recent Foreign Travel: No Contact w/other who traveled: No Recent Hopitalizations: No Recent Infectious Disease Expo: No Immunizations Up To Date Date of Pneumonia Vaccine: Jan 11, 2012 Date of Influenza Vaccine: Jan 10, 2017 Seasonal Allergies Seasonal Allergies: Yes Past Medical History Surgeries: Eye Surgery, Hysterectomy Hysterectomy Gastrointestinal: Gall Bladder Disease Endocrine: Hypothyroidsim Psychosocial: Anxiety, Depression History of Blood Disorders: Yes (anemia) Family History Reviewed Nursing Family Hx No Pertinent Family Hx Review of Systems Constitutional: No chills, dizziness, No fever, weakness EENTM: No blurred vision, No double vision, No nose congestion, No throat pain Respiratory: No cough, No dyspnea on exertion, No short of breath Cardiovascular: No chest pain, No edema, No palpitations Gastrointestinal: see HPI, nausea, vomiting Genitourinary: No dysuria, No frequency Musculoskeletal: No joint pain, No muscle pain Skin: No lesions, No rash Psychiatric/Neurological: Denies Emotional Problems, Denies Headache, Denies Numbness, Denies Tingling All Other Systems Reviewed Negative Unless Noted: Yes (Negative excepted noted.) Physical Exam Physical Exam Vital Signs Vital Signs - First Documented 06/28/17 16:25 Temp 97.3 Pulse 83 Resp 12 B/P (MAP) 152/71 (98) Pulse Ox 95 O2 Delivery Room Air Capillary Refill : General Appearance: No Apparent Distress, WD/WN HEENT: PERRL/EOMI, Moist Mucous Membranes Neck: Non Tender, Supple Respiratory: Lungs Clear, No Respiratory Distress Cardiovascular: Regular Rate, Rhythm, No Murmur Gastrointestinal: Normal Bowel Sounds, Non Tender, Soft Extremity: Normal Capillary Refill, No Calf Tenderness Neurologic/Psychiatric: Alert, Oriented x3, Normal Mood/Affect Skin: Normal Color, Warm/Dry Results Results/Procedures Labs Patient resulted labs reviewed. Short Stay Diagnosis Discharge Diagnosis-Short Stay Admission Diagnosis Intractable nausea and vomiting Final Discharge Diagnosis Vertigo Conclusion Plan See problems Diagnosis/Problems Diagnosis/Problems (1) Intractable nausea and vomiting Status: Acute Assessment & Plan: Now resolved Continue [place] Will DC home with Zofran as well tolerating food Qualifiers: Qualified Codes: R11.2 - Nausea with vomiting, unspecified (2) Vertigo Status: Acute Assessment & Plan: Now resolved (3) Hypothyroidism Status: Chronic Assessment & Plan: Continue home meds Clinical Quality Measures DVT/VTE Risk/Contraindication: Risk Factor Score Per Nursin RFS Level Per Nursing on Admit: 2=Moderate Copy Copies To 1: KATARINA BULLARD KATELYN M MD Jun 29, 2017 09:20
[2017-06-29 12:00] VITALS: BP 121/72
== END 2017-06-29 09:19 | disposition home or self-care (01) ==
LOC: 4TH 16:14 → UNDOADMOB 16:14 → 4TH 16:20 → UNDODISOB 06-29 13:05
PROVIDERS: ADMIT Family Medicine; ATTEND Family Medicine
DX: R11.2 Nausea with vomiting, unspecified (principal); R42 Dizziness and giddiness; E03.9 Hypothyroidism, unspecified; Z79.899 Other long term (current) drug therapy; F32.9 Major depressive disorder, single episode, unspecified; F41.9 Anxiety disorder, unspecified; Z87.891 Personal history of nicotine dependence; Z88.0 Allergy status to penicillin; Z88.1 Allergy status to other antibiotic agents; Z88.2 Allergy status to sulfonamides
CPT/HCPCS: 36415; 80048; 85025; 99211; G0378

== ENCOUNTER 2019-05-01 17:01 | Emergency (ER) | payer BC ==
[~2019-05-01] VITALS: Ht 157 cm; Wt 80.0 kg
[~2019-05-01 17:01] MED LIST changes: +ALBU2.5V4 IH; +AMAN100C18 PO; +BUDE10.2 IH; +CITA20TA9 PO; +ESTR2TAB PO; +FLUT9.9S NS; -FLUT9.9S NSEACH; +LEVO88TA54 PO; +MONT10TA24 PO; +MTP100TCR PO; +NFIPRATRNS NS; +NRT10C PO; +ONDA4TAB11 PO; +ONDA4TAB8 SL; +RT-ALBUINH INH; +SCOP1PAT11 TD; +SCOP1PAT11 TOP; +SUMA50TA2 PO; +TOPI25TA10 PO
[2019-05-01] MEDS ORDERED: ASPIRIN 81 MG CHEW (CHILDREN'S ASA) ONE (17:49)
[2019-05-01] MEDS ORDERED: NITROGLYCERIN 0.4 MG SL TABS BTL 25'S SL ONE (17:49)
[2019-05-01 17:53] LABS: BASOPHILS % (AUTO) 0 % (0-10); EOSINOPHILS % (AUTO) 0 % (0-10); HEMATOCRIT 41 % (35-52); HEMOGLOBIN 13.5 G/DL (11.5-16.0); LYMPHOCYTES % (AUTO) 25 % (12-44); MEAN CORPUSCULAR HEMOGLOBIN 31 PG (25-34); MEAN CORPUSCULAR HGB CONC 33 G/DL (32-36); MEAN CORPUSCULAR VOLUME 92 FL (80-99); MEAN PLATELET VOLUME 9.8 FL (7.4-10.4); MONOCYTES # (AUTO) 0.9 X 10^3 (0.0-1.0); MONOCYTES % (AUTO) 7 % (0-12); NEUTROPHILS # (AUTO) 8.1 X 10^3 (1.8-7.8); NEUTROPHILS % (AUTO) 68 % (42-75); PLATELET COUNT 275 10^3/uL (130-400)
--- NOTE | 2019-05-01 18:03 | Diagnostic Imaging Report ---
CHEST 1 VIEW, AP/PA ONLY Indication: Chest heaviness. Comparison: 01/26/2019 Findings: No focal airspace disease in the visualized lungs. Please note that the posterior lower lobes are poorly evaluated by portable radiography. No pleural effusion or pneumothorax. Normal cardiomediastinal silhouette. Impression: 1. No acute cardiopulmonary process by portable radiography. Dictated by: Dictated on workstation # [id number]
[2019-05-01 18:09] LABS: PROTHROMBIN TIME PATIENT 13.2 SEC (12.2-14.7)
[2019-05-01 18:11] LABS: ALANINE AMINOTRANSFERASE 26 U/L (0-55); ALBUMIN 4.2 GM/DL (3.2-4.5); ALKALINE PHOSPHATASE 54 U/L (40-136); BILIRUBIN,TOTAL 0.2 MG/DL (0.1-1.0); BUN/CREATININE RATIO 19; CALCIUM 9.3 MG/DL (8.5-10.1); CARBON DIOXIDE 20 MMOL/L (21-32); CHLORIDE 107 MMOL/L (98-107); CREATININE SERUM 0.89 MG/DL (0.60-1.30); GFR ESTIMATED > 60; GLUCOSE 129 MG/DL (70-105); LIPASE 16 U/L (8-78); MAGNESIUM 1.8 MG/DL (1.6-2.4); POTASSIUM 3.5 MMOL/L (3.6-5.0); SODIUM 140 MMOL/L (135-145); TOTAL PROTEIN 7.2 GM/DL (6.4-8.2)
[2019-05-01] MEDS ORDERED: NITROGLYCERIN 0.4 MG SL TABS BTL 25'S SL PRN (18:15)
[2019-05-01] MEDS ORDERED: ASPIRIN 81 MG CHEW (CHILDREN'S ASA) PO ONE (18:15)
[2019-05-01 18:52] LABS: FIBRIN DEGRADATION PRODUCTS 0.21 UG/ML (0.00-0.49)
--- NOTE | 2019-05-01 19:26 | ED General ---
General Chief Complaint: General Problems/Pain Stated Complaint: ELEV BP/HEADACHE/NAUSEA Nursing Triage Note: Pt ambulates to triage with c/o BP issues, GARCIA, heavy chest x 1 day. Pt states she has hypotension, BP 143/90 in triage. Pt states Dr. Ho advised her to come in to get checked out. Pt denies any chest pain but states there is chest pressure. Nursing Sepsis Screen: No Definite Risk Source of Information: Patient Exam Limitations: No Limitations History of Present Illness Date Seen by Provider: May 01, 2019 Time Seen by Provider: 17:29 Allergies and Home Medications Allergies Coded Allergies: Penicillins (Unverified Allergy, Unknown, 10/20/13) Sulfa (Sulfonamide Antibiotics) (Unverified Allergy, Unknown, 10/20/13) amoxicillin (Unverified Allergy, Unknown, 10/20/13) azithromycin (Unverified Allergy, Unknown, 10/20/13) diphenhydramine (Unverified Allergy, Unknown, 10/20/13) levofloxacin (Unverified Allergy, Unknown, 10/20/13) Home Medications Albuterol Sulfate 2.5 Mg/3 Ml Vial.neb, 2.5 MG IH Q6H PRN for SHORTNESS OF BREATH, (Reported) Albuterol Sulfate 1 Puff Puff, 2 PUFF INH QID PRN for SHORTNESS OF BREATH, (Reported) Amantadine HCl 100 Mg Capsule, 100 MG PO BID, (Reported) Budesonide/Formoterol Fumarate 10.2 Gm Hfa.aer.ad, 2 PUFF IH DAILY PRN for SHORTNESS OF BREATH, (Reported) Citalopram Hydrobromide 20 Mg Tablet, 20 MG PO DAILY, (Reported) Estradiol 2 Mg Tablet, 2 MG PO DAILY, (Reported) Fluticasone Propionate 9.9 Ml [place].susp, 2 SPRAY NS DAILY PRN for ALLERGIES, (Reported) Ipratropium [place] 15 Ml Naspr, 2 SPRAYS NS TID PRN for ALLERGIES, (Reported) Iron Polysaccharide Complex 150 Mg Capsule, 150 MG PO DAILY, (Reported) Levothyroxine Sodium 88 Mcg Tablet, 88 MCG PO DAILY, (Reported) Metoprolol Succinate 100 Mg Tab.er.24h, 100 MG PO DAILY Prescribed by: NIECY MEANS on 01/27/19 686 Montelukast Sodium 10 Mg Tablet, 10 MG PO DAILY, (Reported) Nortriptyline HCl 10 Mg Capsule, 30 MG PO BID, (Reported) Ondansetron 4 Mg Tab.rapdis, 4 MG PO Q4H PRN for NAUSEA/VOMITING-1ST LINE, (Reported) Pantoprazole Sodium 40 Mg Tablet.dr, 40 MG PO DAILY, (Reported) Scopolamine 1 Each Patch.td72, 1 PATCH TD Q72H PRN for VERTIGO, (Reported) Sumatriptan Succinate 50 Mg Tablet, 50 MG PO UD PRN for MIGRAINE, (Reported) Topiramate 25 Mg Tablet, PO UD, (Reported) FILLED 01-24-19 #120 FOR 30 DAYS. TAKING 1 TAB DAILY X 1 WEEK THEN INCREASE TO 2X DAILY X 1 WEEK THEN INCREASE TO 3 DAILY X 1 WEEK THEN 2 TABS TWICE DAILY. Past Tzzzdkp-Lqpnxv-Dfpiwh Hx Patient Social History Alcohol Use: Denies Use Recreational Drug Use: No Smoking Status: Former Smoker Former Smoker, Quit: Jun 23, 1991 2nd Hand Smoke Exposure: No Recent Foreign Travel: No Contact w/Someone Who Travel: No Recent Infectious Disease Expo: No Recent Hopitalizations: No Physical Abuse: No Sexual Abuse: No Mistreated: No Fear: No Immunizations Up To Date Tetanus Booster (TDap): Unknown Date of Pneumonia Vaccine: Jan 11, 2012 Date of Influenza Vaccine: Jan 10, 2019 Seasonal Allergies Seasonal Allergies: Yes Past Medical History Surgeries: Yes (R foot sx x2) Eye Surgery, Hysterectomy Respiratory: Yes Asthma Cardiac: No Neurological: No SLACKMAN History: Hysterectomy Genitourinary: No Gastrointestinal: Yes Gastroesophageal Reflux, Gall Bladder Disease Musculoskeletal: No Endocrine: Yes Hypothyroidsim HEENT: No Cancer: No Psychosocial: Yes Anxiety, Depression Integumentary: No Blood Disorders: Yes (anemia) Family Medical History No Pertinent Family Hx Physical Exam Vital Signs Vital Signs - First Documented 05/01/19 17:08 Temp 36.6 Pulse 94 Resp 19 B/P (MAP) 143/90 (107) Pulse Ox 96 O2 Delivery Room Air Capillary Refill : Less Than 3 Seconds Height, Weight, BMI Height: 5'2.00" Weight: 195lbs. 0.0oz. 88.753719wk; 32.00 BMI Method: Progress/Results/Core Measures Suspected Sepsis Recent Fever Within 48 Hours: No Infection Criteria Present: None New/Unexplained Altered Menta: No Sepsis Screen: No Definite Risk SIRS Temperature: Pulse: 94 Respiratory Rate: 19 Laboratory Tests 05/01/19 17:44: White Blood Count 12.0H Blood Pressure 143 /90 Mean: 107 Laboratory Tests 05/01/19 17:44: Creatinine 0.89, INR Comment 1.0, Platelet Count 275, Total Bilirubin 0.2 Results/Orders Lab Results Laboratory Tests Test 05/01/19 17:44 Range/Units White Blood Count 12.0 H 4.3-11.0 10^3/uL Red Blood Count 4.42 4.35-5.85 10^6/uL Hemoglobin 13.5 11.5-16.0 G/DL Hematocrit 41 35-52 % Mean Corpuscular Volume 92 80-99 FL Mean Corpuscular Hemoglobin 31 25-34 PG Mean Corpuscular Hemoglobin Concent 33 32-36 G/DL Red Cell Distribution Width 13.0 10.0-14.5 % Platelet Count 275 130-400 10^3/uL Mean Platelet Volume 9.8 7.4-10.4 FL Neutrophils (%) (Auto) 68 42-75 % Lymphocytes (%) (Auto) 25 12-44 % Monocytes (%) (Auto) 7 0-12 % Eosinophils (%) (Auto) 0 0-10 % Basophils (%) (Auto) 0 0-10 % Neutrophils # (Auto) 8.1 H 1.8-7.8 X 10^3 Lymphocytes # (Auto) 3.0 1.0-4.0 X 10^3 Monocytes # (Auto) 0.9 0.0-1.0 X 10^3 Eosinophils # (Auto) 0.0 0.0-0.3 10^3/uL Basophils # (Auto) 0.0 0.0-0.1 10^3/uL Prothrombin Time 13.2 12.2-14.7 SEC INR Comment 1.0 0.8-1.4 Activated Partial Thromboplast Time 27 24-35 SEC D-Dimer 0.21 0.00-0.49 UG/ML Sodium Level 140 135-145 MMOL/L Potassium Level 3.5 L 3.6-5.0 MMOL/L Chloride Level 107 98-107 MMOL/L Carbon Dioxide Level 20 L 21-32 MMOL/L Anion Gap 13 5-14 MMOL/L Blood Urea Nitrogen 17 7-18 MG/DL Creatinine 0.89 0.60-1.30 MG/DL Estimat Glomerular Filtration Rate > 60 BUN/Creatinine Ratio 19 Glucose Level 129 H 70-105 MG/DL Calcium Level 9.3 8.5-10.1 MG/DL Corrected Calcium 9.1 8.5-10.1 MG/DL Magnesium Level 1.8 1.6-2.4 MG/DL Total Bilirubin 0.2 0.1-1.0 MG/DL Aspartate Amino Transf (AST/SGOT) 21 5-34 U/L Alanine Aminotransferase (ALT/SGPT) 26 0-55 U/L Alkaline Phosphatase 54 40-136 U/L Myoglobin 59.0 10.0-92.0 NG/ML Troponin I < 0.028 <0.028 NG/ML Total Protein 7.2 6.4-8.2 GM/DL Albumin 4.2 3.2-4.5 GM/DL Lipase 16 8-78 U/L My Orders Orders - BERNOT,AIDA Cbc With Automated Diff (05/01/19 17:29) Magnesium (05/01/19 17:29) Chest 1 View, Ap/Pa Only (05/01/19 17:29) Ekg Tracing (05/01/19 17:29) Comprehensive Metabolic Panel (05/01/19 17:29) Myoglobin Serum (05/01/19 17:29) Protime With Inr (05/01/19 17:29) Partial Thromboplastin Time (05/01/19 17:29) O2 (05/01/19 17:29) Monitor-Rhythm Ecg Trace Only (05/01/19 17:29) Lipid Panel (05/02/19 06:00) Ed Iv/Invasive Line Start (05/01/19 17:29) Lipase (05/01/19 17:29) Troponin I (05/01/19 17:29) Nitroglycerin 0.4 Mg Btl 25's (Nitrostat (05/01/19 17:49) Aspirin Chewable Tablet (Baby Aspirin Ch (05/01/19 17:49) Nitroglycerin 0.4 Mg Btl 25's (Nitrostat (05/01/19 18:15) Aspirin Chewable Tablet (Baby Aspirin Ch (05/01/19 18:15) Fibrin Degradation Products (05/01/19 17:44) Medications Given in ED Current Medications Medications Dose Ordered Sig/[place] Route Start Time Stop Time Status Last Admin Dose Admin Aspirin 324 mg ONCE ONCE PO 05/01/19 18:15 05/01/19 18:16 DC 05/01/19 17:54 324 MG Nitroglycerin 0.4 mg UD PRN SL 05/01/19 18:15 05/01/19 17:54 0.4 MG Vital Signs/I&O 05/01/19 17:08 Temp 36.6 Pulse 94 Resp 19 B/P (MAP) 143/90 (107) Pulse Ox 96 O2 Delivery Room Air Capillary Refill : Less Than 3 Seconds Blood Pressure Mean: 107 Departure Impression Primary Impression: Anxiety Additional Impression: Chest tightness Disposition: 01 HOME, SELF-CARE Condition: Stable/Unchanged Departure-Patient Inst. Decision time for Depature: 19:25 Referrals: SATHYA MILLER DO (PCP/Family) Primary Care Physician Patient Instructions: Anxiety, Adult (DC), Chest Pain (DC) Add. Discharge Instructions: Resume your home medications as previously and instructed. Call to schedule an appointment with Dr. Ho tomorrow morning for further evaluation. Return back to the emergency room for chest pain or shortness of breath, worsening symptoms, or any other concerns as needed. All discharge instructions reviewed with patient and/or family. Voiced understanding. AIDA MODI May 01, 2019 19:26
[2019-05-01 19:47] VITALS: BP 119/63
== END 2019-05-01 19:48 | disposition home or self-care (01) ==
LOC: EDUNIT# 17:01 → ER 17:02
DX: F41.9 Anxiety disorder, unspecified (principal); R07.89 Other chest pain; J45.909 Unspecified asthma, uncomplicated; F32.9 Major depressive disorder, single episode, unspecified; D64.9 Anemia, unspecified; K21.9 Gastro-esophageal reflux disease without esophagitis; E03.9 Hypothyroidism, unspecified; Z88.0 Allergy status to penicillin; Z88.2 Allergy status to sulfonamides; Z88.1 Allergy status to other antibiotic agents; Z88.8 Allergy status to other drugs, medicaments and biological substances; Z79.52 Long term (current) use of systemic steroids; Z79.51 Long term (current) use of inhaled steroids; Z87.891 Personal history of nicotine dependence; Z90.710 Acquired absence of both cervix and uterus
CPT/HCPCS: 36415; 71045; 80053; 83690; 83735; 83874; 84484; 85025; 85379; 85610; 85730; 93005; 93041

== ENCOUNTER → 2019-05-18 | Outpatient (CLI) | payer BC | LOC: CARD 07:34 | PROVIDERS: ATTEND Nurse Practitioner Family | DX: R00.2 Palpitations (principal) | CPT/HCPCS: 93225; 93226 ==

== ENCOUNTER 2019-12-23 10:44 | Emergency (ER) | payer BC ==
[~2019-12-23] VITALS: Ht 157.4 cm; Wt 86.1 kg
[~2019-12-23 10:44] MED LIST changes: -MONT10TA24 PO; +MONT10TA26 PO
[2019-12-23] MEDS ORDERED: fentaNYL INJECTION 100 MCG/2 ML AMP IVP STA (10:53)
[2019-12-23] MEDS ORDERED: LACTATED RINGERS 1,000 ML IV STA (10:53)
[2019-12-23] MEDS ORDERED: KETOROLAC 30 MG/ML VIAL IVP STA (10:53)
--- NOTE | 2019-12-23 11:04 | ED Abdominal Pain ---
General Chief Complaint: Abdominal/GI Problems Stated Complaint: ABD PAIN Nursing Triage Note: Pt to ED in wheelchair from vehicle. Pt c/o LUQ radiating to the back for the last couple days. Pt also c/o nausea. Sepsis Screen: No Definite Risk Source of Information: Patient Exam Limitations: No Limitations History of Present Illness Date Seen by Provider: Dec 23, 2019 Time Seen by Provider: 10:43 Initial Comments Here with report of 2-3 days of left upper quadrant abdominal pain that is worsening. States that she's not really able to eat well but is able to drink a little bit. She's not had pain like this before. Denies fever or chills but does complain of nausea without vomiting and denies diarrhea. Denies blood in her stool or urine. Timing/Duration: 2-3 Days Severity/Quality: Moderate, Severe, Aching Location: LUQ Radiation: Back Activities at Onset: None Modifying Factors: Worsens With Eating, Worsens With Movement; Improves With Resting Associated Symptoms: Back Pain; No Chest Pain, No Fever/Chills; Nausea/Vomi ting; No Shortness of Air; Weakness Allergies and Home Medications Allergies Coded Allergies: Penicillins (Unverified Allergy, Unknown, 10/20/13) Sulfa (Sulfonamide Antibiotics) (Unverified Allergy, Unknown, 10/20/13) amoxicillin (Unverified Allergy, Unknown, 10/20/13) azithromycin (Unverified Allergy, Unknown, 10/20/13) diphenhydramine (Unverified Allergy, Unknown, 10/20/13) levofloxacin (Unverified Allergy, Unknown, 10/20/13) Home Medications Albuterol Sulfate 2.5 Mg/3 Ml Vial.neb, 2.5 MG IH Q6H PRN for SHORTNESS OF BREATH, (Reported) Albuterol Sulfate 1 Puff Puff, 2 PUFF INH QID PRN for SHORTNESS OF BREATH, (Reported) Amantadine HCl 100 Mg Capsule, 100 MG PO BID, (Reported) Budesonide/Formoterol Fumarate 10.2 Gm Hfa.aer.ad, 2 PUFF IH DAILY PRN for SHORTNESS OF BREATH, (Reported) Citalopram Hydrobromide 20 Mg Tablet, 20 MG PO DAILY, (Reported) Estradiol 2 Mg Tablet, 2 MG PO DAILY, (Reported) Fluticasone Propionate 9.9 Ml [place].susp, 2 SPRAY NS DAILY PRN for ALLERGIES, (Reported) Ipratropium [place] 15 Ml Naspr, 2 SPRAYS NS TID PRN for ALLERGIES, (Reported) Iron Polysaccharide Complex 150 Mg Capsule, 150 MG PO DAILY, (Reported) Levothyroxine Sodium 88 Mcg Tablet, 88 MCG PO DAILY, (Reported) Metoprolol Succinate 100 Mg Tab.er.24h, 100 MG PO DAILY Prescribed by: NIECY MEANS on 01/27/19 174 Montelukast Sodium 10 Mg Tablet, 10 MG PO DAILY, (Reported) Nortriptyline HCl 10 Mg Capsule, 30 MG PO BID, (Reported) Ondansetron 4 Mg Tab.rapdis, 4 MG PO Q4H PRN for NAUSEA/VOMITING-1ST LINE, (Reported) Pantoprazole Sodium 40 Mg Tablet.dr, 40 MG PO DAILY, (Reported) Scopolamine 1 Each Patch.td72, 1 PATCH TD Q72H PRN for VERTIGO, (Reported) Sumatriptan Succinate 50 Mg Tablet, 50 MG PO UD PRN for MIGRAINE, (Reported) Topiramate 25 Mg Tablet, PO UD, (Reported) FILLED 01-24-19 #120 FOR 30 DAYS. TAKING 1 TAB DAILY X 1 WEEK THEN INCREASE TO 2X DAILY X 1 WEEK THEN INCREASE TO 3 DAILY X 1 WEEK THEN 2 TABS TWICE DAILY. Patient Home Medication List Home Medication List Reviewed: Yes Review of Systems Review of Systems Constitutional: see HPI; No chills, No fever EENTM: No Symptoms Reported Respiratory: Denies Cough, Denies Shortness of Air Cardiovascular: Denies Chest Pain, Denies Edema Gastrointestinal: Abdominal Pain; Denies Blood Streaked Stools, Denies Diarrhea; Nausea; Denies Vomiting Genitourinary: No Symptoms Reported Musculoskeletal: see HPI Skin: no symptoms reported All Other Systems Reviewed Negative Unless Noted: Yes Past Hnhaxjh-Toczed-Mkadvo Hx Patient Social History Alcohol Use: Denies Use Recreational Drug Use: No Former Smoker, Quit: Jun 23, 1991 2nd Hand Smoke Exposure: No Recent Foreign Travel: No Contact w/Someone Who Travel: No Recent Infectious Disease Expo: No Recent Hopitalizations: No Immunizations Up To Date Tetanus Booster (TDap): Unknown Date of Pneumonia Vaccine: Jan 11, 2012 Date of Influenza Vaccine: Jan 10, 2019 Seasonal Allergies Seasonal Allergies: Yes Past Medical History Surgeries: Yes (R foot sx x2, ANKLE) Eye Surgery, Gallbladder, Hysterectomy Respiratory: Yes Asthma Cardiac: No Hypertension 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 0.0oz. 88.015127pg; 34.00 BMI Method: General Appearance: WD/WN, no apparent distress HEENT: PERRL/EOMI, TMs normal, pharynx normal Neck: full range of motion, supple Respiratory: lungs clear, normal breath sounds Cardiovascular: no murmur, tachycardia Gastrointestinal: soft; No guarding, No rebound; tenderness (left upper quadrant) Extremities: non-tender, normal inspection Back: normal inspection, no CVA tenderness, no vertebral tenderness Neurologic/Psychiatric: alert, oriented x 3 Skin: normal color, warm/dry Progress/Results/Core Measures Results/Orders Lab Results Laboratory Tests Test 12/23/19 10:55 12/23/19 11:14 Range/Units White Blood Count 12.7 H 4.3-11.0 10^3/uL Red Blood Count 4.98 4.35-5.85 10^6/uL Hemoglobin 15.2 11.5-16.0 G/DL Hematocrit 45 35-52 % Mean Corpuscular Volume 90 80-99 FL Mean Corpuscular Hemoglobin 31 25-34 PG Mean Corpuscular Hemoglobin Concent 34 32-36 G/DL Red Cell Distribution Width 13.0 10.0-14.5 % Platelet Count 310 130-400 10^3/uL Mean Platelet Volume 9.6 7.4-10.4 FL Neutrophils (%) (Auto) 68 42-75 % Lymphocytes (%) (Auto) 22 12-44 % Monocytes (%) (Auto) 6 0-12 % Eosinophils (%) (Auto) 4 0-10 % Basophils (%) (Auto) 0 0-10 % Neutrophils # (Auto) 8.7 H 1.8-7.8 X 10^3 Lymphocytes # (Auto) 2.8 1.0-4.0 X 10^3 Monocytes # (Auto) 0.7 0.0-1.0 X 10^3 Eosinophils # (Auto) 0.5 H 0.0-0.3 10^3/uL Basophils # (Auto) 0.0 0.0-0.1 10^3/uL Sodium Level 134 L 135-145 MMOL/L Potassium Level 4.2 3.6-5.0 MMOL/L Chloride Level 96 L 98-107 MMOL/L Carbon Dioxide Level 21 21-32 MMOL/L Anion Gap 17 H 5-14 MMOL/L Blood Urea Nitrogen 10 7-18 MG/DL Creatinine 0.86 0.60-1.30 MG/DL Estimat Glomerular Filtration Rate > 60 BUN/Creatinine Ratio 12 Glucose Level 115 H 70-105 MG/DL Calcium Level 10.1 8.5-10.1 MG/DL Corrected Calcium 8.5-10.1 MG/DL Magnesium Level 1.8 1.6-2.4 MG/DL Total Bilirubin 0.7 0.1-1.0 MG/DL Aspartate Amino Transf (AST/SGOT) 15 5-34 U/L Alanine Aminotransferase (ALT/SGPT) 15 0-55 U/L Alkaline Phosphatase 69 40-136 U/L C-Reactive Protein High Sensitivity 6.39 H 0.00-0.50 MG/DL Total Protein 8.7 H 6.4-8.2 GM/DL Albumin 4.6 H 3.2-4.5 GM/DL Amylase Level 29 25-125 U/L Lipase 9 8-78 U/L Urine Color YELLOW Urine Clarity CLEAR Urine pH 7.0 5-9 Urine Specific [place] 1.020 1.016-1.022 Urine Protein 1+ H NEGATIVE Urine Glucose (UA) NEGATIVE NEGATIVE Urine Ketones TRACE H NEGATIVE Urine Nitrite NEGATIVE NEGATIVE Urine Bilirubin NEGATIVE NEGATIVE Urine Urobilinogen 0.2 < = 1.0 MG/DL Urine Leukocyte Esterase NEGATIVE NEGATIVE Urine RBC (Auto) TRACE-I NEGATIVE Urine RBC 0-2 /HPF Urine WBC NONE /HPF Urine Squamous Epithelial Cells 5-10 /HPF Urine Crystals NONE /LPF Urine Bacteria TRACE /HPF Urine Casts NONE /LPF Urine Mucus NEGATIVE /LPF Urine Culture Indicated NO My Orders Orders - LEENA CORTES MD Lactated Ringers (Lr 1000 Ml Iv Solution (12/23/19 10:53) Ed Iv/Invasive Line Start (12/23/19 10:53) Amylase (12/23/19 10:53) Cbc With Automated Diff (12/23/19 10:53) Comprehensive Metabolic Panel (12/23/19 10:53) Hs C Reactive Protein (12/23/19 10:53) Lipase (12/23/19 10:53) Magnesium (12/23/19 10:53) Ua Culture If Indicated (12/23/19 10:53) Fentanyl Injection (Sublimaze Injection (12/23/19 10:53) Ketorolac Injection (Toradol Injection) (12/23/19 10:53) Ct Abdomen/Pelvis W (12/23/19 ) Iohexol Injection (Omnipaque 350 Mg/Ml 1 (12/23/19 11:45) Received Contrast (Hold Metformin- Contr (12/23/19 11:45) Ns (Ivpb) (Sodium Chloride 0.9% Ivpb Bag (12/23/19 11:45) Oxygen-Administer 07,19 (12/23/19 12:38) Famotidine Injection (Pepcid Injection) (12/23/19 13:02) Pantoprazole Injection (Protonix Injecti (12/23/19 13:15) Sucralfate Tablet (Carafate Tablet) (12/23/19 13:15) Medications Given in ED Current Medications Medications Dose Ordered Sig/[place] Route Start Time Stop Time Status Last Admin Dose Admin Iohexol 100 ml ONCE ONCE IV 12/23/19 11:45 12/23/19 11:47 DC 12/23/19 12:21 100 ML Sodium Chloride 100 ml ONCE ONCE IV 12/23/19 11:45 12/23/19 11:47 DC 12/23/19 12:22 80 ML Vital Signs/I&O 12/23/19 12/23/19 10:46 12:00 Temp 37.6 Pulse 100 Resp 15 B/P (MAP) 141/82 (101) Pulse Ox 97 98 O2 Delivery Room Air Nasal Cannula O2 Flow Rate 2.00 Blood Pressure Mean: 101 Progress Progress Note : Progress Note Seen and evaluated. IV, labs, UA, LR 1 L bolus, fentanyl 80 g IV and Toradol 15 mg IV ordered. Monitor patient. CT pelvis ordered for presentation related to pain. Monitor patient. 1310: Pepcid 20 mg IV and Protonix 40 mg IV has been ordered. We will initiate Carafate therapy as possible option and patient has had histories of ulcers. She has not had recent endoscopy. We will continue outpatient Carafate therapy and have her follow up with her primary doctor for referral to surgeon for further evaluation including endoscopy if indicated. I will send a copy of the chart to Dr. Miller. Discharged home with return precautions. Patient verbalize understanding instructions and agreement with plan. She is currently doing a little better and does not require further pain medicine at this point. Diagnostic Imaging Diagonstic Imaging: CT Plain Films/CT/US/NM/MRI: abdomen, pelvis Comments [facility], [place] NAME: SIENNA [facility]UN[facility] REC#: [id number] PT STATUS: REG ER : 1965 PHYSICIAN: LEENA CORTES MD ADMIT DATE: 12/23/19/ER Draft Date of Exam:12/23/19 CT ABDOMEN/PELVIS W PROCEDURE: CT abdomen and pelvis with contrast. TECHNIQUE: Multiple contiguous axial images were obtained through the abdomen and pelvis after administration of intravenous contrast. Auto Exposure Controls were utilized during the CT exam to meet ALARA standards for radiation dose reduction. INDICATION: Left upper quadrant pain radiating to the back. No prior studies are available for comparison. The lung bases are clear. There is mild generalized low density throughout the liver consistent with hepatic steatosis. No discrete liver mass is identified. Gallbladder appears to be surgically absent. There is no biliary ductal dilatation. The pancreas and spleen are unremarkable. No adrenal mass is detected. Kidneys are unremarkable. Aorta is non-aneurysmal. The small and large bowel loops appear to be normal caliber. No obstruction is identified. Appendix is visualized in the right lower quadrant. Appendix appears unremarkable. No free fluid or fluid collection is identified. The bladder is unremarkable. Bony structures appear to be intact. IMPRESSION: 1. Hepatic steatosis. 2. No acute feature in the abdomen or pelvis is identified. Dictated on workstation # [id number] Dict: 12/23/19 1239 Trans: 12/23/19 1250 [facility] [id number] Interpreted by: JON GARNICA MD Electronically signed by: Departure Impression Primary Impression: Upper abdominal pain Disposition: HOME, SELF-CARE Condition: Stable Departure-Patient Inst. Decision time for Depature: 13:26 Referrals: SATHYA MILLER DO (PCP/Family) Primary Care Physician Patient Instructions: Severe Abdominal Pain, Adult (DC) Add. Discharge Instructions: All discharge instructions reviewed with patient and/or family. Voiced understanding. Take medications as directed. You may also take [id number] Pepcid/famotidine or omeprazole per package directions. Clear light diet for the next few days and then advance as tolerated. Follow-up with your DrManny this week for recheck and further evaluation and referral if indicated to surgeon for possible upper endoscopy (scope). Return for worse pain, fever, vomiting, weakness, breathing problems or other concerns as needed. Scripts Sucralfate (Sucralfate) 1 Gm Tablet 1 GM PO ACHS, #56 TAB 1 Refill Chew tablet to a slurry and then swallow Prov: LEENA CORTES MD 12/23/19 Copy Copies To 1: SATHYA MILLER TIMOTHY D MD Dec 23, 2019 11:04
[2019-12-23 11:07] LABS: BASOPHILS % (AUTO) 0 % (0-10); EOSINOPHILS # (AUTO) 0.5 10^3/uL (0.0-0.3); EOSINOPHILS % (AUTO) 4 % (0-10); HEMATOCRIT 45 % (35-52); HEMOGLOBIN 15.2 G/DL (11.5-16.0); LYMPHOCYTES # (AUTO) 2.8 X 10^3 (1.0-4.0); LYMPHOCYTES % (AUTO) 22 % (12-44); MEAN CORPUSCULAR HEMOGLOBIN 31 PG (25-34); MEAN CORPUSCULAR HGB CONC 34 G/DL (32-36); MEAN CORPUSCULAR VOLUME 90 FL (80-99); MEAN PLATELET VOLUME 9.6 FL (7.4-10.4); MONOCYTES # (AUTO) 0.7 X 10^3 (0.0-1.0); MONOCYTES % (AUTO) 6 % (0-12); NEUTROPHILS # (AUTO) 8.7 X 10^3 (1.8-7.8); NEUTROPHILS % (AUTO) 68 % (42-75); PLATELET COUNT 310 10^3/uL (130-400); WHITE BLOOD COUNT 12.7 10^3/uL (4.3-11.0)
[2019-12-23 11:17] LABS: ALBUMIN 4.6 GM/DL (3.2-4.5); CHLORIDE 96 MMOL/L (98-107); POTASSIUM 4.2 MMOL/L (3.6-5.0); SODIUM 134 MMOL/L (135-145)
[2019-12-23 11:18] LABS: AMYLASE 29 U/L (25-125); CALCIUM 10.1 MG/DL (8.5-10.1)
[2019-12-23 11:19] LABS: GLUCOSE 115 MG/DL (70-105)
[2019-12-23 11:20] LABS: TOTAL PROTEIN 8.7 GM/DL (6.4-8.2)
[2019-12-23 11:21] LABS: BILIRUBIN,URINE NEGATIVE (NEGATIVE); CLARITY,URINE CLEAR; COLOR,URINE YELLOW; GLUCOSE, URINE (UA) NEGATIVE (NEGATIVE); KETONES,URINE TRACE (NEGATIVE); LEUKOCYTE ESTERASE ,URINE NEGATIVE (NEGATIVE); NITRITE,URINE NEGATIVE (NEGATIVE); PROTEIN,URINE 1+ (NEGATIVE)
[2019-12-23 11:21] LABS: BILIRUBIN,TOTAL 0.7 MG/DL (0.1-1.0); CARBON DIOXIDE 21 MMOL/L (21-32)
[2019-12-23 11:23] LABS: ALKALINE PHOSPHATASE 69 U/L (40-136); CREATININE SERUM 0.86 MG/DL (0.60-1.30); GFR ESTIMATED > 60
[2019-12-23 11:24] LABS: BUN/CREATININE RATIO 12
[2019-12-23 11:26] LABS: ALANINE AMINOTRANSFERASE 15 U/L (0-55); MAGNESIUM 1.8 MG/DL (1.6-2.4)
[2019-12-23 11:27] LABS: LIPASE 9 U/L (8-78)
[2019-12-23 11:35] LABS: BACTERIA,URINE TRACE /HPF; RBC,URINE 0-2 /HPF
[2019-12-23] MEDS ORDERED: NS 100 ML (IVPB) BAG IV ONE (11:45)
[2019-12-23] MEDS ORDERED: IOHEXOL 350 MG/ML 100 ML (OMNIPAQUE 350) VIAL IV ONE (11:45)
[2019-12-23] MEDS ORDERED: HOLD METFORMIN - RECEIVED CONTRAST 20 ML VIAL IV SCH (11:45)
--- NOTE | 2019-12-23 12:00 | NUR ---
PT UPDATED ON CURRENT PT RESULTS AND PLAN OF CARE.
--- NOTE | 2019-12-23 12:50 | Diagnostic Imaging Report ---
PROCEDURE: CT abdomen and pelvis with contrast. TECHNIQUE: Multiple contiguous axial images were obtained through the abdomen and pelvis after administration of intravenous contrast. Auto Exposure Controls were utilized during the CT exam to meet ALARA standards for radiation dose reduction. INDICATION: Left upper quadrant pain radiating to the back. No prior studies are available for comparison. The lung bases are clear. There is mild generalized low density throughout the liver consistent with hepatic steatosis. No discrete liver mass is identified. Gallbladder appears to be surgically absent. There is no biliary ductal dilatation. The pancreas and spleen are unremarkable. No adrenal mass is detected. Kidneys are unremarkable. Aorta is non-aneurysmal. The small and large bowel loops appear to be normal caliber. No obstruction is identified. Appendix is visualized in the right lower quadrant. Appendix appears unremarkable. No free fluid or fluid collection is identified. The bladder is unremarkable. Bony structures appear to be intact. IMPRESSION: 1. Hepatic steatosis. 2. No acute feature in the abdomen or pelvis is identified. Dictated by: Dictated on workstation # [id number]
--- NOTE | 2019-12-23 13:00 | NUR ---
PT INFORMED OF PT PROGRESS TO DISCHARGE AT THIS TIME.
[2019-12-23] MEDS ORDERED: FAMOTIDINE 20MG/2ML IV (PEPCID) IV STA (13:02)
[2019-12-23] MEDS ORDERED: PANTOPRAZOLE 40 MG (PROTONIX) VIAL IV ONE (13:15)
[2019-12-23] MEDS ORDERED: SUCRALFATE 1 GM (CARAFATE) TAB PO ONE (13:15)
[2019-12-23] MEDS ORDERED: SUCR1TAB PO (13:28)
--- NOTE | 2019-12-23 13:30 | NUR ---
PT REPORTS SHE HAS NOT YET TAKEN HER BP MEDICATION TODAY. DR INFORMED OF PT CURRENT BLOOD PRESSURE. PT INSTRUCTED TO TAKE HOME BP MEDS AFTER DISCHARGE.
[2019-12-23 13:36] VITALS: BP 185/132
== END 2019-12-23 13:36 | disposition home or self-care (01) ==
LOC: EDUNIT# 10:44 → ER 10:47
DX: R10.12 Left upper quadrant pain (principal); E03.9 Hypothyroidism, unspecified; K21.9 Gastro-esophageal reflux disease without esophagitis; I10 Essential (primary) hypertension; F32.9 Major depressive disorder, single episode, unspecified; F41.9 Anxiety disorder, unspecified; J45.909 Unspecified asthma, uncomplicated; Z79.890 Hormone replacement therapy; Z87.891 Personal history of nicotine dependence; Z88.0 Allergy status to penicillin; Z88.2 Allergy status to sulfonamides; Z88.1 Allergy status to other antibiotic agents; Z88.8 Allergy status to other drugs, medicaments and biological substances
CPT/HCPCS: 36415; 74177; 80053; 81000; 82150; 83690; 83735; 85025; 86141

== ENCOUNTER 2019-12-23 23:48 | Emergency (ER) | payer BC ==
[~2019-12-23] VITALS: Ht 157 cm; Wt 76.0 kg
[~2019-12-23 23:48] MED LIST changes: +SUCR1TAB PO
--- NOTE | 2019-12-24 00:39 | ED General ---
General Stated Complaint: ABD PAIN,HTN, HEADACHE History of Present Illness Date Seen by Provider: Dec 24, 2019 Time Seen by Provider: 00:38 Initial Comments 54-year-old female presents with headache, concerned that her blood pressure went up into the systolics of 170s, abdominal pain. Patient was seen approximately 12 hours ago in the ER and had a significant workup for abdominal pain including a negative CT abdomen and pelvis. She was given a prescription for Carafate with concerns of gastritis and need for an EGD. Patient reports that she now has a headache. She has a history of migraines. And that her blood pressure went up. Patient is here because she "just wants to feel better" no significant changes in her abdominal pain for which she was seen here earlier today. She is not vomiting fevers or chills. She states continues to have some nausea. Allergies and Home Medications Allergies Coded Allergies: Penicillins (Unverified Allergy, Unknown, 10/20/13) Sulfa (Sulfonamide Antibiotics) (Unverified Allergy, Unknown, 10/20/13) amoxicillin (Unverified Allergy, Unknown, 10/20/13) azithromycin (Unverified Allergy, Unknown, 10/20/13) diphenhydramine (Unverified Allergy, Unknown, 10/20/13) levofloxacin (Unverified Allergy, Unknown, 10/20/13) Home Medications Albuterol Sulfate 2.5 Mg/3 Ml Vial.neb, 2.5 MG IH Q6H PRN for SHORTNESS OF BREATH, (Reported) Albuterol Sulfate 1 Puff Puff, 2 PUFF INH QID PRN for SHORTNESS OF BREATH, (Reported) Amantadine HCl 100 Mg Capsule, 100 MG PO BID, (Reported) Budesonide/Formoterol Fumarate 10.2 Gm Hfa.aer.ad, 2 PUFF IH DAILY PRN for SHORTNESS OF BREATH, (Reported) Citalopram Hydrobromide 20 Mg Tablet, 20 MG PO DAILY, (Reported) Estradiol 2 Mg Tablet, 2 MG PO DAILY, (Reported) Fluticasone Propionate 9.9 Ml [place].susp, 2 SPRAY NS DAILY PRN for ALLERGIES, (Reported) Ipratropium [place] 15 Ml Naspr, 2 SPRAYS NS TID PRN for ALLERGIES, (Reported) Iron Polysaccharide Complex 150 Mg Capsule, 150 MG PO DAILY, (Reported) Levothyroxine Sodium 88 Mcg Tablet, 88 MCG PO DAILY, (Reported) Metoprolol Succinate 100 Mg Tab.er.24h, 100 MG PO DAILY Prescribed by: NIECY MEANS on 01/27/19 1749 Montelukast Sodium 10 Mg Tablet, 10 MG PO DAILY, (Reported) Nortriptyline HCl 10 Mg Capsule, 30 MG PO BID, (Reported) Ondansetron 4 Mg Tab.rapdis, 4 MG PO Q4H PRN for NAUSEA/VOMITING-1ST LINE, (Reported) Pantoprazole Sodium 40 Mg Tablet.dr, 40 MG PO DAILY, (Reported) Scopolamine 1 Each Patch.td72, 1 PATCH TD Q72H PRN for VERTIGO, (Reported) Sucralfate 1 Gm Tablet, 1 GM PO ACHS Chew tablet to a slurry and then swallow Prescribed by: LEENA CORTES on 12/23/19 1328 Sumatriptan Succinate 50 Mg Tablet, 50 MG PO UD PRN for MIGRAINE, (Reported) Topiramate 25 Mg Tablet, PO UD, (Reported) FILLED 01-24-19 #120 FOR 30 DAYS. TAKING 1 TAB DAILY X 1 WEEK THEN INCREASE TO 2X DAILY X 1 WEEK THEN INCREASE TO 3 DAILY X 1 WEEK THEN 2 TABS TWICE DAILY. Patient Home Medication List Home Medication List Reviewed: Yes Review of Systems Review of Systems Constitutional: No chills, No fever, No weakness EENTM: no symptoms reported Respiratory: No cough, No short of breath Cardiovascular: No chest pain Gastrointestinal: see HPI Genitourinary: no symptoms reported Musculoskeletal: no symptoms reported Skin: no symptoms reported Psychiatric/Neurological: See HPI Hematologic/Lymphatic: No Symptoms Reported Immunological/Allergic: no symptoms reported Past Pjwlocd-Pnbqhs-Mnftmw Hx Past Med/Social Hx: Reviewed Nursing Past Med/Soc Hx Patient Social History Former Smoker, Quit: Jun 23, 1991 2nd Hand Smoke Exposure: No Recent Foreign Travel: No Contact w/Someone Who Travel: No Recent Hopitalizations: No Immunizations Up To Date Tetanus Booster (TDap): Unknown Date of Pneumonia Vaccine: Jan 11, 2012 Date of Influenza Vaccine: Jan 10, 2019 Seasonal Allergies Seasonal Allergies: Yes Past Medical History Surgeries: Yes (R foot sx x2, ANKLE) Eye Surgery, Gallbladder, Hysterectomy Respiratory: Yes Asthma Cardiac: No Hypertension 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 0.0oz. 88.898891ir; 34.00 BMI Method: General Appearance: No Apparent Distress Respiratory: Lungs Clear, Normal Breath Sounds Cardiovascular: Regular Rate, Rhythm, No Edema Gastrointestinal: Soft; No Distended, No Guarding; Tenderness (mild epigastric/upper abdomen no guarding , rebound or peritoneal signs) Extremity: Normal Capillary Refill, Normal Inspection Neurologic/Psychiatric: Alert, Oriented x3, proof tester II-XII Norm as Tested Skin: Normal Color, Warm/Dry Progress/Results/Core Measures Suspected Sepsis SIRS Temperature: Pulse: Respiratory Rate: Blood Pressure / Mean: Results/Orders My Orders Orders - JOSEP JAMES L DO Metoclopramide Injection (Reglan Injecti (12/24/19 00:44) Famotidine Injection (Pepcid Injection) (12/24/19 00:44) Ketorolac Injection (Toradol Injection) (12/24/19 00:44) Lactated Ringers (Lr 1000 Ml Iv Solution (12/24/19 00:44) Vital Signs/I&O 12/24/19 00:43 Temp 36.7 Pulse 90 B/P (MAP) 173/95 (121) Pulse Ox 99 O2 Delivery Room Air Capillary Refill : Progress Note : Time: 01:25 Progress Note Patient fell signally better following treatment. Her headache had resolved. She was resting comfortably. She will be discharged home and needs a follow-up with her primary care provider as instructed per her earlier ER visit. Patient is discharged home in stable condition Departure Impression Primary Impression: Abdominal pain Qualified Codes: R10.13 - Epigastric pain Additional Impression: Migraine Qualified Codes: G43.909 - Migraine, unspecified, not intractable, without status migrainosus Disposition: HOME, SELF-CARE Condition: Stable Departure-Patient Inst. Referrals: SATHYA MILLER DO (PCP/Family) Primary Care Physician Patient Instructions: Migraines (DC) Add. Discharge Instructions: Please follow-up with your primary care provider per your instructions from your prior ER visit. JOSEP JAMES DO Dec 24, 2019 00:39
[2019-12-24] MEDS ORDERED: FAMOTIDINE 20MG/2ML IV (PEPCID) IV STA (00:44)
[2019-12-24] MEDS ORDERED: METOCLOPRAMIDE INJ 10 MG/2 ML (REGLAN) IVP STA (00:44)
[2019-12-24] MEDS ORDERED: LACTATED RINGERS 1,000 ML IV STA (00:44)
[2019-12-24] MEDS ORDERED: KETOROLAC 30 MG/ML VIAL IVP STA (00:44)
--- NOTE | 2019-12-24 01:00 | NUR ---
Late entry: Pt was seen yesterday in this ER for similar complaints; states she was unable to take her b/p meds until very late in the day and she was hypertensive when she checked it on her home monitor. Pt also c/o vomiting and abd pain. Pt is dry-heaving upon placing patient in room. Pt to monitor, IV started. Dr. Way to room for eval.
--- NOTE | 2019-12-24 01:21 | NUR ---
Meds given as ordered; lights dimmed for patient comfort. Call light within reach. Will continue to monitor.
--- NOTE | 2019-12-24 02:00 | NUR ---
Pt reports she feels much better; GARCIA is better and nausea has resolved as well as her abd pain.
[2019-12-24 02:17] VITALS: BP 169/107
== END 2019-12-24 02:21 | disposition home or self-care (01) ==
LOC: EDUNIT# 23:48 → ER 23:49
DX: R10.13 Epigastric pain (principal); G43.909 Migraine, unspecified, not intractable, without status migrainosus; K21.9 Gastro-esophageal reflux disease without esophagitis; E03.9 Hypothyroidism, unspecified; J45.909 Unspecified asthma, uncomplicated; F32.9 Major depressive disorder, single episode, unspecified; F41.9 Anxiety disorder, unspecified; I10 Essential (primary) hypertension; Z87.891 Personal history of nicotine dependence; Z88.0 Allergy status to penicillin; Z88.2 Allergy status to sulfonamides; Z88.1 Allergy status to other antibiotic agents; Z88.8 Allergy status to other drugs, medicaments and biological substances; Z79.890 Hormone replacement therapy

== ENCOUNTER 2020-02-08 05:34 | Outpatient (RCR) | payer BC ==
[~2020-02-08] VITALS: Ht 157.5 cm; Wt 84.5 kg
[~2020-02-08 05:34] MED LIST changes: +METO50TA7 PO; -PANT40TA3 PO; +PANT40TA52 PO
== END 2020-02-08 11:36 | disposition home or self-care (01) ==
LOC: PREOP 05:34
PROVIDERS: ATTEND Surgery
DX: Z01.812 Encounter for preprocedural laboratory examination (principal); Z20.828 Contact with and (suspected) exposure to other viral communicable diseases
CPT/HCPCS: 87635

== ENCOUNTER 2020-02-12 07:36 | Day surgery (SDC) | payer BC ==
[~2020-02-12] VITALS: Ht 187.5 cm; Wt 84.5 kg
[2020-02-12 07:50] VITALS: BP 163/75
[2020-02-12] MEDS ORDERED: LACTATED RINGERS 1,000 ML IV ONE (07:58)
[2020-02-12] MEDS ORDERED: LACTATED RINGERS 1,000 ML IV PRN (08:15)
[2020-02-12] MEDS ORDERED: MIDAZOLAM 2 MG/2 ML (VERSED) VIAL ONE (09:42)
[2020-02-12] MEDS ORDERED: PROPOFOL INJECTION 50 ML IV ONE ×2 (09:42→09:55)
[2020-02-12 10:15] VITALS: BP 125/60
[2020-02-12 10:20] VITALS: BP_SYST 131; BP_SYST 140; BP_DIAS 65; BP_DIAS 67
--- NOTE | 2020-02-12 10:29 | Progress Note-Pre Operative ---
Pre-Operative Progress Note H&P Reviewed The H&P was reviewed, patient examined and no changes noted. Time Seen by Provider: 08:10 Date H&P Reviewed: Feb 12, 2020 Time H&P Reviewed: 08:11 Pre-Operative Diagnosis: Screening colonoscopy TRISTEN MAHER DO Feb 12, 2020 10:29
--- NOTE | 2020-02-12 10:30 | Progress Note-Post Operative ---
Post-Operative Progess Note Surgeon (s)/Technical Services Rep (s) Surgeon TRISTEN MAHER DO Technical Services Rep: LIZETH Allan Pre-Operative Diagnosis Screening colonoscopy Post-Operative Diagnosis polyps int hemorrhoids Procedure & Operative Findings Date of Procedure 02/12/20 Procedure Performed/Findings colon with snare Anesthesia Type IV sedation by EMBEDDED SYSTEMS ENGINEER Estimated Blood Loss Estimated blood loss (mL): scant Specimens/Packing Specimens Removed transverse colon x 2 asc colon cecal colon polyp TRISTEN MAHER DO Feb 12, 2020 10:30
--- NOTE | 2020-02-12 10:31 | Endoscopy Discharge Instruct ---
Endo Procedure/Findings Findings 1.: Polyp 2.: Internal Hemorrhoids Discharge Instructions - Activity: You might feel a little sleepy until tomorrow. This is due to the medicine you received to relax you. Until tomorrow, you should: NOT drive a car, operate machinery or power tools. NOT drink any alcoholic beverages. NOT make any important decisions or sign importortant papers. Do not return to work until tomorrow, unless otherwise instructed. Resume previous activities tomorrow. Diet: Start by taking liquids. If you tolerate liquids, advance to solid food. 1.: Colonscopy in 3 years Notify Physician - If you experience excessive bleeding, unusual abdominal pain, fever, or chest pain, contact your doctor immediately. TRISTEN MAHER DO Feb 12, 2020 10:31
[2020-02-12 10:50] VITALS: BP 123/78
[2020-02-12 11:07] VITALS: BP 123/78
--- NOTE | 2020-02-12 14:57 | Anesthesia-General Post-Op ---
MAC Patient Condition Mental Status/LOC: Same as Preop Cardiovascular: Satisfactory Nausea/Vomiting: Absent Respiratory: Satisfactory Pain: Controlled Complications: Absent Post Op Complications Complications None Follow Up Care/Instructions Patient Instructions None needed. Anesthesiology Discharge Order Discharge Order Patient is doing well, no complaints, stable vital signs, no apparent adverse anesthesia problems. No complications reported per nursing. FREDDIE MEAD CRNA Feb 12, 2020 14:57
--- NOTE | 2020-02-13 04:10 | OPERATIVE REPORT ---
DATE OF SERVICE: 02/12/2020 PREOPERATIVE DIAGNOSIS: Screening colonoscopy. POSTOPERATIVE DIAGNOSES: Colon polyps and internal hemorrhoids. PROCEDURE: Colonoscopy with snare polypectomy. SURGEON: Tang Bethea DO POLICY INTERN: Placido Yen MS3 ANESTHESIA: IV sedation by the PLASTER BLOCK LAYER. SPECIMEN: Two pieces of transverse colon polyp, two ascending colon polyps and one cecal polyp. BLOOD LOSS: Scant. FLUIDS: Per anesthesia. POSTOPERATIVE CONDITION: Stable. INDICATION FOR PROCEDURE: The patient is a 54-year-old female who needs a screening colonoscopy. FINDINGS: The patient had polyps, one in the transverse colon, two in the ascending colon and one in the cecum. PROCEDURE NOTE: After informed consent was obtained, the patient was brought to the endoscopy suite, placed in bed in left lateral decubitus position. She was administered IV sedation by the PLASTER BLOCK LAYER who then monitored her vitals the entire time, heart rate, blood pressure and pulse ox and the scope was inserted, pushed in. On the way in, in the transverse colon, noted a polyp, did a snare polypectomy and then continued down to the cecum, took a picture of appendiceal orifice, able to get into the terminal ileum and then slowly withdrew the scope, insufflating to look circumferential godwin looking at the cecum, up the ascending colon. In the ascending colon, saw two polyps, removed these with snare polypectomy and then at the spot of the transverse colon, saw a polyp appeared to have some leftover, so we removed the rest of it with another snare polypectomy, just outside the cecum, also saw a polyp and did snare polypectomy of this, then continued down the transverse colon, the splenic flexure, into the descending colon down in the sigmoid and finally into the rectum, retroflexed in the rectal vault, saw some minimal internal hemorrhoids, took a picture and then removed the scope. The patient tolerated the procedure and she was recovered in endoscopy suite. Job ID: [id number] DocumentID: [id number] Dictated Date: 02/12/2020 17:31:18 [employer] Operator Date: 02/13/2020 04:10:36 Dictated By: TANG BETHEA DO
== END 2020-02-12 11:07 | disposition home or self-care (01) ==
LOC: ENDO 07:36
PROVIDERS: ATTEND Surgery
DX: Z12.11 Encounter for screening for malignant neoplasm of colon (principal); D12.3 Benign neoplasm of transverse colon; D12.2 Benign neoplasm of ascending colon; D12.0 Benign neoplasm of cecum; K64.8 Other hemorrhoids; I10 Essential (primary) hypertension; J45.909 Unspecified asthma, uncomplicated; K21.9 Gastro-esophageal reflux disease without esophagitis; K29.70 Gastritis, unspecified, without bleeding; E03.9 Hypothyroidism, unspecified; F41.9 Anxiety disorder, unspecified; E66.9 Obesity, unspecified; Z68.24 Body mass index [BMI] 24.0-24.9, adult; Z79.51 Long term (current) use of inhaled steroids; Z79.899 Other long term (current) drug therapy; Z88.0 Allergy status to penicillin; Z88.1 Allergy status to other antibiotic agents; Z88.2 Allergy status to sulfonamides; Z88.8 Allergy status to other drugs, medicaments and biological substances; Z90.710 Acquired absence of both cervix and uterus; Z90.49 Acquired absence of other specified parts of digestive tract; Z80.9 Family history of malignant neoplasm, unspecified

== ENCOUNTER → 2021-07-29 | Outpatient (CLI) | payer MEDICARE ==
[~2021-07-29] MED LIST changes: -AMAN100C18 PO; +AMAN100C20 PO; -ESTR2TAB PO; +ESTR2TAB3 PO; +MONT-40 PO; -MONT10TA26 PO; +SCOP1PAT10 TD; +SCOP1PAT10 TOP; -SCOP1PAT11 TD; -SCOP1PAT11 TOP
--- NOTE | 2021-07-29 11:59 | Diagnostic Imaging Report ---
INDICATION: GANGLION CYST OF RIGHT WRIST COMPARISON: None. FINDINGS: 3 views of the right wrist demonstrate no acute fracture or dislocation. There are no focal osseous lesions. No avascular necrosis is seen. The visualized soft tissue structures are unremarkable. The pronator fat pad is not displaced. There are no radio opaque foreign bodies. IMPRESSION: 1. No acute fracture or dislocation in the right wrist. Dictated by: Dictated on workstation # [id number]
--- NOTE | 2021-07-29 12:00 | Diagnostic Imaging Report ---
INDICATION: SHOULDER PAIN LEFT COMPARISON: None. FINDINGS: Multiple radiographic views of the left shoulder were obtained. There is no fracture, dislocation, or other acute bony abnormality identified. The soft tissues appear unremarkable. No radiopaque foreign body is identified. The visualized portions of the left lung are clear. IMPRESSION: No acute fractures or dislocations of the left shoulder. Dictated by: Dictated on workstation # [id number]
== END ==
LOC: RAD FS 10:58
PROVIDERS: ATTEND Nurse Practitioner
DX: M67.431 Ganglion, right wrist (principal); M25.512 Pain in left shoulder
CPT/HCPCS: 73030; 73110

== ENCOUNTER → 2021-10-17 | Outpatient (CLI) | payer MEDICARE ==
--- NOTE | 2021-10-17 11:20 | Diagnostic Imaging Report ---
INDICATION: Dysphagia. The procedure was performed in conjunction with speech pathology. Video fluoroscopy was performed during the swallowing of barium in multiple consistencies. 81 seconds of fluoroscopic time was utilized. Patient ingested thin barium as well as puree and cracker consistencies. Patient also ingested a barium tablet. Mild vallecular residue was noted with the cracker consistency. In addition, the barium tablet did lodge in the valleculae. The residue as well as the tablet did clear with the second swallow of thin barium. No penetration or aspiration was observed. IMPRESSION: There is mild vallecular residue and the barium tablet did lodge in the valleculae. These all cleared during a 2nd swallow. No aspiration or penetration was observed. Dictated by: Dictated on workstation # [id number]
== END ==
LOC: RAD 10:00
PROVIDERS: ATTEND Student in an Organized Health Care Education/Training Program
DX: R13.12 Dysphagia, oropharyngeal phase (principal)
CPT/HCPCS: 74230

== ENCOUNTER → 2022-03-25 | Outpatient (CLI) | payer MEDICARE ==
[~2022-03-25] MED LIST changes: +ALBU8.5H6 INH; -RT-ALBUINH INH
--- NOTE | 2022-03-25 16:43 | Diagnostic Imaging Report ---
EXAMINATION: Left hip unilateral 2 or 3 views (w/pelvis when done) HISTORY: Hip pain COMPARISON: None available. FINDINGS: There is mild left hip osteoarthritis. No fracture. No dislocation. There is heterotopic ossification associated with the greater trochanter. IMPRESSION: 1. No fracture in the left hip. Dictated by: Dictated on workstation # [id number]
--- NOTE | 2022-03-25 17:21 | Diagnostic Imaging Report ---
EXAMINATION: Pelvis radiograph EXAM DATE: 03/25/2022 12:07 PM COMPARISON: 12/23/2019 HISTORY: Left hip pain TECHNIQUE: 1 views FINDINGS: There is no acute fracture, dislocation, or destructive osseous process. The joint spaces are normal. The soft tissues are normal. IMPRESSION: 1. No acute osseous abnormality. Dictated by: Dictated on workstation # [id number]
== END ==
LOC: RAD FS 11:23
PROVIDERS: ATTEND Nurse Practitioner
DX: M25.552 Pain in left hip (principal)
CPT/HCPCS: 72170; 73502